=== PATIENT | female | born 1990 | race Caucasian/White ===

== ENCOUNTER 2017-11-02 04:53 | Emergency (ER) | payer OTHER, SELFPAY ==
[2017-11-02 04:56] VITALS: BP 154/99; PULSE 110; RESP 20; TEMP 36.6; O2SAT 99; BMI 33.0
--- NOTE | 2017-11-02 05:32 | ED.VISSUMM ---
- ER Visit Summary Date of Service: 11/02/17 Chief Complaint: Diarrhea for 2 days History of Present Illness: The patient is a 27 F past medical history of anxiety and hypertension. States both her and her son for diarrhea for last 2 days. She denies any fever abdominal pain. They do drink well water. She denies any nausea or vomiting is able to keep fluids down. Physical Examination: Appearing young female vital signs are stable afebrile she does not look septic toxic. She is no acute distress. Clinically at worst she is very mildly dehydrated but she does have moist wheeze membranes. Neck nontender no lymphadenopathy. Lungs clear to auscultation bilaterally. Heart regular rhythm rate about 110 no murmur. Abdomen is soft, nontender, nondistended normal bowel sounds no peritoneal signs. No localizing tenderness. No hernias or masses. No signs of obstruction. She is moving all 4 extremities are neurovascular intact. No edema. Neurologically she is awake alert with no focal motor deficits. Back exam is unremarkable and nontender. Test Results: None Emergency Department Course and Treatment: Medically and historically the patient has a viral syndrome and viral diarrhea. She is not dehydrated. She is not nauseated or vomiting. She is comfortable with orally hydrating at home. She will start Imodium for the diarrhea. And follow-up with her primary care physician Dr. Mckenna if not improving. Treatment Plan: Discharge Disposition: Discharge Impression: Acute diarrhea of uncertain etiology suspect secondary to viral syndrome Mild dehydration This note was generated with [employer] dictation software. It may contain incorrect words, spelling, and punctuation that were not noted in review of the chart prior to signing ED Disposition - Plan for ED Patient: Chief Complaint: Diarrhea Referrals: Wu Mckenna DO [Primary Care Provider] -
--- NOTE | 2017-11-02 05:34 | ED.DEP ---
ED Disposition - Plan for ED Patient: Disposition: Home or Assisted Living Chief Complaint: Diarrhea Instructions: ED Diarrhea Viral Additional Instructions: Fluids and rest. Return to ER feeling worse or unable to keep fluids down. Follow-up your primary care physician in 3-5 days if not improving. Consider having her well water checked. More than likely this is from a viral illness. Exam is unremarkable. Orally hydrate.
[2017-11-02 05:41] VITALS: BP 142/68; PULSE 98; RESP 18; O2SAT 98
== END 2017-11-02 05:42 | disposition home or self-care (01) ==
PROVIDERS: Emergency Provider Emergency Medicine; Family Provider Student in an Organized Health Care Education/Training Program; PCP Student in an Organized Health Care Education/Training Program
DX: B34.9 Viral infection, unspecified (principal); E86.0 Dehydration; I10 Essential (primary) hypertension
CPT/HCPCS: 99282

== ENCOUNTER 2018-04-22 19:55 | Observation (INO) | payer OTHER, SELFPAY ==
[2018-04-22 19:57] VITALS: BP 169/115; PULSE 128; RESP 18; TEMP 36.8; O2SAT 100; BMI 32.5
--- NOTE | 2018-04-22 20:08 | US_ITS ---
STUDY: FIRST TRIMESTER OBSTETRICAL ULTRASOUND REASON FOR EXAM: Female, 28 years old. Bleeding, abdominal pain LMP: 03/07/2018 TECHNIQUE: Transabdominal and Transvaginal TECHNICAL QUALITY: Adequate. PRIOR ULTRASOUND: None. FINDINGS: There is no demonstrated intrauterine gestational sac. There is no demonstrated yolk sac. The placenta is non-visualized. There is no demonstrated embryo ( pole). The uterus measures 9.4 x 6.2 x 4.4 cm.. There is no demonstrated uterine fibroid. The cervix is closed. The endometrium is thickened and echogenic, measuring 12 mm in thickness. The right ovary measures 3.9 x 2.9 x 2.5 cm.. There is a 1.6 x 1.5 x 0.9 cm right ovarian cyst. There is an ill-defined heterogeneous region of the right adnexa. The left ovary measures 4.9 x 2.8 x 1.7 cm.. There is no left ovarian cyst. There is no visualized left adnexal mass or complex lesion. There is a moderate amount of fluid in the anterior and posterior cul-de-sac containing debris. US/Transvaginal w/Preg US IMPRESSION: There is no evidence of intrauterine gestational sac or products of conception. The endometrium is thickened and echogenic, measuring 12 mm in thickness. There is a 1.6 x 1.5 x 0.9 cm right ovarian cyst. There is a moderate amount of fluid in the anterior and posterior cul-de-sac. Findings may represent ruptured ectopic. Electronically Signed: Erlin Giang MD at 21:47 EST , Service support ,
--- NOTE | 2018-04-22 20:17 | ED.VISSUMM ---
- ER Visit Summary Date of Service: 04/22/18 Chief Complaint: [] Pelvic cramps vaginal bleeding History of Present Illness: The patient is a 28 F [] about 5-6 weeks she has had intermittent vaginal bleeding and spotting and pelvic cramps for a few days, she was seen today by her pickling tank operator Dr. Lindsey in the office had a complete evaluation including pelvic exam pelvic ultrasound hCG quant that was 1200 all done today, she presents complaining that she still having the pelvic cramps and some scant bleeding, she denies any other history of any GI elements, her bowel and bladder habits are generally unremarkable there is been no vomiting no fever she takes her hands and draws across her lower pelvic region complaining of discomfort Physical Examination: [] 169/115, 120 General, no distress resting comfortably HEENT is generally unremarkable The neck is supple no adenopathy Cardiovascular, regular rate and rhythm Lungs, clear bilateral Abdomen, soft nontender Extremities, no clubbing cyanosis or edema Neurologic, awake alert answering questions appropriately moving all 4 extremities Exam is deferred as she just had one in the office Test Results: [] Emergency Department Course and Treatment: [] She indicates her quant was 1200 the above studies were negative we will obtain screening labs check those studies The patient's transvaginal pelvic ultrasound per radiology shows abnormality in the right adnexal region concerning for an ectopic, there is moderate amount of free pelvic fluid with debris, her vital signs are unremarkable her labs are unremarkable, spoke with Dr. Smith system sales consultant for gynecology she will be to see her shortly we have typed and screened her she has 2 IVs she is receiving fluid boluses her and remains hemodynamically stable explained all the above to the patient and her family Treatment Plan: [] Disposition: [] Pending ELASTIC ATTACHER ZIGZ[employer] evaluation Impression: [] Ectopic right, pelvic pain vaginal bleeding ELASTIC ATTACHER [employer] evaluation This note was generated with [employer] dictation software. It may contain incorrect words, spelling, and punctuation that were not noted in review of the chart prior to signing ED Disposition - Plan for ED Patient: Chief Complaint: Referrals: Wu Mckenna DO [Primary Care Provider] -
--- NOTE | 2018-04-22 20:21 | ED.DCSUM_ITS ---
- ER Visit Summary Date of Service: 04/22/18 Chief Complaint: [] Pelvic cramps vaginal bleeding History of Present Illness: The patient is a 28 F [] about 5-6 weeks she has had intermittent vaginal bleeding and spotting and pelvic cramps for a few days, she was seen today by her photo journalist Dr. Lindsey in the office had a complete evaluation including pelvic exam pelvic ultrasound hCG quant that was 1200 all done today, she presents complaining that she still having the pelvic cramps and some scant bleeding, she denies any other history of any GI elements, her bowel and bladder habits are generally unremarkable there is been no vomiting no fever she takes her hands and draws across her lower pelvic region complaining of discomfort Physical Examination: [] 169/115, 120 General, no distress resting comfortably HEENT is generally unremarkable The neck is supple no adenopathy Cardiovascular, regular rate and rhythm Lungs, clear bilateral Abdomen, soft nontender Extremities, no clubbing cyanosis or edema Neurologic, awake alert answering questions appropriately moving all 4 extremities Exam is deferred as she just had one in the office Test Results: [] Emergency Department Course and Treatment: [] She indicates her quant was 1200 the above studies were negative we will obtain screening labs check those studies The patient's transvaginal pelvic ultrasound per radiology shows abnormality in the right adnexal region concerning for an ectopic, there is moderate amount of free pelvic fluid with debris, her vital signs are unremarkable her labs are unremarkable, spoke with Dr. Smith digital content producer for gynecology she will be to see her shortly we have typed and screened her she has 2 IVs she is receiving fluid boluses her and remains hemodynamically stable explained all the above to the patient and her family Treatment Plan: [] Disposition: [] Pending SENIOR MANAGER [employer] evaluation Impression: [] Ectopic right, pelvic pain vaginal bleeding SENIOR MANAGER [employer] evaluation This note was generated with [employer] dictation software. It may contain incorrect words, spelling, and punctuation that were not noted in review of the chart prior to signing ED Disposition - Plan for ED Patient: Chief Complaint: Referrals: Wu Mckenna DO [Primary Care Provider] -
[2018-04-22] MEDS: 0.9% Normal Saline 1,000 ML 1000 ML IV (20:43)
[2018-04-22] MEDS: Labetalol 100 MG Tablet PO (20:43)
[2018-04-22 20:46] VITALS: BP 166/90; PULSE 98; O2SAT 98
[2018-04-22 20:52] LABS: Bacteria 0 SEEN /hpf (None Seen); Mucous, Urine 0 SEEN /hpf (<or=2+); White Blood Cells 0 SEEN /hpf (0-5)
[2018-04-22 20:53] LABS: Color, Urine Yellow (Yellow); Glucose, Dipstick Normal (Normal); Ketone-Dipstick 5 mg/dl (Negative); Leukocyte Esterase-Dipstick Negative /ul (Negative); Nitrite-Dipstick Negative (Negative); Occult Blood-Urine 250 /ul (Negative); Protein-Dipstick Negative (Negative); Urine Bilirubin Dipstick Negative (Negative); Urine Clarity Clear (Clear); Urine Urobilinogen Normal (Normal); Urine pH 6.5 (5.0 - 8.0)
[2018-04-22 21:00] LABS: Absolute Lymphocyte Count 2.32 X10^3/ul (0.83-4.51); Absolute Neutrophil Count 5.2 X10^3/uL (2.0-7.7); Basophil# 0.02 X10^3/uL; Basophil% 0.2 % (0-1); Eosinophil# 0.07 X10^3/uL; Eosinophils% 0.9 % (0-5); Hematocrit 41.5 % (37-47); Hemoglobin 14.2 g/dl (12.0-15.0); Lymphocyte # 2.32 X10^3/ul (4.0); Lymphocyte % 28.7 % (19-41); Mean Corp Hgb Conc 34.2 g/gl (32-36); Mean Corpuscular Hgb 30.4 pg (27.0-32.0); Mean Corpuscular Volume 88.9 fL (81-99); Mean Platelet Vol. 8.6 fl (6.2-12.0); Monocyte# 0.43 X10^3/uL; Monocyte% 5.3 % (0-10); Neutrophil # 5.22 X10^3/uL (2.7-7.7); Neutrophil % 64.8 % (47-70); POSITIVE COUNT NO; POSITIVE DIFFERENTIAL NO; POSITIVE MORPHOLOGY NO; Platelet Count 396 K/mm3 (150-450); RBC Distribution Width CV 12.1 % (11.6-14.6); RBC Distribution Width SD 38.8 fl (35.1-43.9); Red Blood Count 4.67 M/mm3 (4.2-5.4); White Blood Count 8.1 K/mm3 (4.4-11.0)
[2018-04-22 21:01] LABS: Red Blood Cells-Urine 25-50 SEEN /hpf (0-5)
[2018-04-22 21:02] LABS: Squamous Epithelial Cells - UA 0-5 SEEN /hpf (5-10)
[2018-04-22 21:34] LABS: hCG Titer Quant., Serum 866 mIU/mL (<9 non-preg)
--- NOTE | 2018-04-22 22:35 | PCM.HP.BLA ---
History and Physical Date of Admission: 04/22/18 28-year-old 2 para 1 with an last menstrual period of approximately 04/07/2018 presented to the office today complaining of a positive test with some spotting and pelvic pain. She had a quantitative hCG yesterday that was 1254 done at the [facility]. She had a small amount of free fluid in the pelvis today and a moderate amount of pelvic pain. However, her pain was being controlled with [id number] Tylenol and she was to get a repeat quantitative hCG tomorrow and she was given ectopic precautions. She states her pain got somewhat worse today. It feels a little worse in the left lower quadrant and may be in the epigastric area. It is a little bit worse when she has a gas bubble or needs to belch. It is better if she is lying still. She not taken anything for pain since Tylenol at noon today. She denies any nausea or vomiting. She has some moderate amount of bright red vaginal bleeding less than a normal menstrual period. Review of systems: General: No fevers or chills Cardiac: No chest pain or palpitation Respiratory: No shortness of breath or wheezing Endocrine: Patient's menses are somewhat irregular Heme: No history of prolonged bleeding or easy bruising GI: No diarrhea or constipation, no nausea vomiting Past obstetrical history: History of one vaginal delivery at 37 weeks and 2015. She was induced for preeclampsia with that Medications: Tylenol as needed, labetalol 100 mg p.o. twice daily, Ativan as needed for anxiety, of note she has been on Clomid to induce ovulation, and she is used Provera to induce menses Past medical history: Anxiety, infertility with irregular menses Past surgical history: [place] tooth extraction Physical exam see vitals General: Patient is awake, alert, no acute distress Neuro: Patient's cranial nerves appear symmetrical, her speech is normal, answers questions appropriately Skin: Warm dry and intact with normal turgor Abdomen: Soft, nondistended, no rebound or guarding. Moderate tenderness in the lower pelvic area and suprapubic region LIVESTOCK DEALER: Normal external genitalia, normal mons pubis, normal urethra. There is a small amount of dark red blood in the vault. There is normal vaginal rugae. Cervix appears closed and nonfriable. Uterus is small, mobile, moderate tenderness. No discrete adnexal masses Labs reviewed. Continue to be hCG has decreased significantly since yesterday. Even with internal lab discrepancies, a drop from 1254 to the 800 range is significant and consistent with a nonviable . Pelvic ultrasound results reviewed Assessment and plan: Ectopic likely of the right tube I discussed the patient risk benefits and alternatives of expectant versus surgical versus medical management methotrexate. At this point, patient is hemodynamically stable and her pain is moderate. She states if I would give her something such as Vicodin she would likely be able to sleep. Patient would like to proceed with methotrexate. I discussed with her signs and symptoms of acute rupture and when to return. We discussed the pain would likely persist or may be even slightly worsen and this is a normal progression with resolution of ectopic . However, if her pain becomes uncontrolled with the pain medications at home or she becomes lightheaded or dizzy she should return to the emergency room. We will check a CBC before discharge to ensure that is stable. If it is trending down may need to observe patient overnight versus take her to surgery for rupturing ectopic . Recommend repeat hcg in 4 and 7 days and f/u in office next week. Consultation performed at request of ED attending and case discussed face to face with him after my evaluation of patient .
[2018-04-22 22:36] LABS: AST(SGOT) 34 U/L (15-37); Alanine Aminotransfer ALT/SGPT 79 U/L (13-56); Albumin, Serum 4.2 g/dL (3.2-5.0); Alkaline Phosphatase 41 U/L (45-117); Anion Gap 8 (5-15); BUN 8 mg/dL (7-18); BUN/Creat Ratio 12.6 RATIO (10-20); Bilirubin, Direct 0.11 mg/dL (0.00-0.30); Calcium,Total 8.5 mg/dL (8.5-10.1); Chloride 108 mmol/L (98-107); Creatinine, Serum 0.63 mg/dL (0.55-1.02); EST Glomerular Filtration Rate 117 mL/min (>60); Est Glom Filt Rate - Afr Amer 142 mL/min (>60); Estimated Creatinine Clearance 112.75 ml/min; Globulin 3.3 g/dL (2.2-4.2); Glucose 98 mg/dL (74-106); Potassium 3.6 mmol/L (3.5-5.1); Protein, Total 7.5 g/dL (6.4-8.2); Sodium Level 140 mmol/L (136-145)
--- NOTE | 2018-04-22 22:41 | HP.PCM_ITS ---
History and Physical Date of Admission: 04/22/18 28-year-old 2 para 1 with an last menstrual period of approximately 04/07/2018 presented to the office today complaining of a positive test with some spotting and pelvic pain. She had a quantitative hCG yesterday that was 1254 done at the [facility]. She had a small amount of free fluid in the pelvis today and a moderate amount of pelvic pain. However, her pain was being controlled with [id number] Tylenol and she was to get a repeat quantitative hCG tomorrow and she was given ectopic precautions. She states her pain got somewhat worse today. It feels a little worse in the left lower quadrant and may be in the epigastric area. It is a little bit worse when she has a gas bubble or needs to belch. It is better if she is lying still. She not taken anything for pain since Tylenol at noon today. She denies any nausea or vomiting. She has some moderate amount of bright red vaginal bleeding less than a normal menstrual period. Review of systems: General: No fevers or chills Cardiac: No chest pain or palpitation Respiratory: No shortness of breath or wheezing Endocrine: Patient's menses are somewhat irregular Heme: No history of prolonged bleeding or easy bruising GI: No diarrhea or constipation, no nausea vomiting Past obstetrical history: History of one vaginal delivery at 37 weeks and 2015. She was induced for preeclampsia with that Medications: Tylenol as needed, labetalol 100 mg p.o. twice daily, Ativan as nee ded for anxiety, of note she has been on Clomid to induce ovulation, and she is used Provera to induce menses Past medical history: Anxiety, infertility with irregular menses Past surgical history: [place] tooth extraction Physical exam see vitals General: Patient is awake, alert, no acute distress Neuro: Patient's cranial nerves appear symmetrical, her speech is normal, answers questions appropriately Skin: Warm dry and intact with normal turgor Abdomen: Soft, nondistended, no rebound or guarding. Moderate tenderness in the lower pelvic area and suprapubic region TELEVISION TUBE INSPECTOR: Normal external genitalia, normal mons pubis, normal urethra. There is a small amount of dark red blood in the vault. There is normal vaginal rugae. Cervix appears closed and nonfriable. Uterus is small, mobile, moderate tenderness. No discrete adnexal masses Labs reviewed. Continue to be hCG has decreased significantly since yesterday. Even with internal lab discrepancies, a drop from 1254 to the 800 range is significant and consistent with a nonviable . Pelvic ultrasound results reviewed Assessment and plan: Ectopic likely of the right tube I discussed the patient risk benefits and alternatives of expectant versus surgical versus medical management methotrexate. At this point, patient is hemodynamically stable and her pain is moderate. She states if I would give her something such as Vicodin she would likely be able to sleep. Patient would like to proceed with methotrexate. I discussed with her signs and symptoms of acute rupture and when to return. We discussed the pain would likely persist or may be even slightly worsen and this is a normal progression with resolution of ectopic . However, if her pain becomes uncontrolled with the pain medications at home or she becomes lightheaded or dizzy she should return to the emergency room. We will check a CBC before discharge to ensure that is stable. If it is trending down may need to observe patient overnight versus take her to surgery for rupturing ectopic . Recommend repeat hcg in 4 and 7 days and f/u in office next week. Consultation performed at request of ED attending and case discussed face to face with him after my evaluation of patient .
[2018-04-22] MEDS: HYDROcodone Bitartrate/Apap 5/325 Tablet PO (23:26)
[2018-04-22] MEDS: Ketorolac 30 MG/ML Syringe IV (23:26)
[2018-04-22] MEDS: 0.9% Normal Saline 1,000 ML 999 ML IV (23:26)
[2018-04-22 23:28] VITALS: BP 156/95; PULSE 96; RESP 15; O2SAT 98
[2018-04-23] VITALS (10 sets, daily range): BP systolic 133–163; BP diastolic 63–99; PULSE 82–113; RESP 14–18; TEMP 36.6–37.2; O2SAT 92–99; BMI 33.1
--- NOTE | 2018-04-23 | FALS_PTH ---
PATIENT: LEANA JANES LOC: MS3 U#:[id number] AGE/SX: 28/F ROOM: MS306 RE04/23/[address]: Dr. Latosha Smith MD : [id number] BED: 1 DIS: 04/23/2018 SPEC #: [id number] RECD: 04/23/18 14:30 STATUS: CHUCKY REDomenic #: [id number] KRAINA: 04/23/18 00:[address]: Latosha Smith DEPT: SURGICAL PATHOLOGY RECD BY: Kaden Carroll ENTERED: 04/23/18 14:30 SP TYPE: FALL TUBES OTHR DR: Dr. Wu Mckenna, DO Tissues: Fallopian tube Procedures: Surgery Specimen Level IV HEADER OPERATION: Diagnostic laparoscopy, left salpingectomy PRE-OP DIAGNOSIS: Possible ectopic TISSUE SUBMITTED: Left fallopian tube and contents MICROSCOPIC DIAGNOSIS Left fallopian tube and contents: Fallopian tube including fimbrial end with focal area of rupture. Detached fragments of blood clots with decidua and trophoblasts, suggestive of products of conception (ectopic ). CHRISTIANO:marissa 04/24/18 COMMENT Chorionic villi are not identified. Clinical correlation and appropriate follow up are necessary. Case has been reviewed in consultation with Dr. Mckeon who concurs with the above diagnosis. IDC:AM MICROSCOPIC DESCRIPTION Slides are reviewed. GROSS DESCRIPTION Received in fixative is one container labeled with the patient's name and designated left fallopian tube and contents. The specimen consists of a fallopian tube measuring 8.5 cm in length and up to 0.5 to 1 cm in diameter. In the middle portion, 4 cm away from the proximal end, there is a focal area of congestion, hemorrhage and rupture is noted. The fimbrial end is identified. Also present in the container is a detached piece of kumar-pink soft tissue and blood clot measuring in aggregate 2 x 1.5 x 0.3 cm. No obvious tissue is identified. The entire specimen is submitted in four cassettes. Cassette 1 contains the fimbrial end and detached pieces of tissue and blood clot. / CHRISTIANO:marissa 04/23/18 TC:5 CPT: 25445
[2018-04-23 00:11] LABS: Hemoglobin 9.9 g/dl (12.0-15.0); Mean Corp Hgb Conc 34.1 g/gl (32-36); Mean Corpuscular Hgb 30.8 pg (27.0-32.0); Mean Corpuscular Volume 90.3 fL (81-99); Mean Platelet Vol. 8.9 fl (6.2-12.0); Platelet Count 288 K/mm3 (150-450); RBC Distribution Width CV 11.9 % (11.6-14.6); RBC Distribution Width SD 37.7 fl (35.1-43.9); Red Blood Count 3.21 M/mm3 (4.2-5.4); White Blood Count 6.1 K/mm3 (4.4-11.0)
--- NOTE | 2018-04-23 00:11 | NURSING ---
NO REACTION NOTED AFTER BILATERAL IM INJECTIONS OF METHOTREXATE IN HER THIGHS.
[2018-04-23 00:13] LABS: Scan Indicated on CBC? Y/N NO
[2018-04-23] MEDS: Lactated Ringers 1,000 ML 100 ML IV (03:28)
[2018-04-23] MEDS: HYDROmorphone 1 MG/ML Syringe IV ×3 (03:28→11:59)
[2018-04-23 06:11] LABS: Hematocrit 34.2 % (37-47); Hemoglobin 11.7 g/dl (12.0-15.0); Mean Corp Hgb Conc 34.2 g/gl (32-36); Mean Corpuscular Hgb 30.6 pg (27.0-32.0); Mean Corpuscular Volume 89.5 fL (81-99); Mean Platelet Vol. 8.4 fl (6.2-12.0); Platelet Count 345 K/mm3 (150-450); RBC Distribution Width CV 11.9 % (11.6-14.6); Red Blood Count 3.82 M/mm3 (4.2-5.4); White Blood Count 7.6 K/mm3 (4.4-11.0)
[2018-04-23 06:15] LABS: Scan Indicated on CBC? Y/N NO
--- NOTE | 2018-04-23 08:36 | EKG12_ITS ---
Test Reason : PREOP Blood Pressure : / mmHG Vent. Rate : 094 BPM Atrial Rate : 094 BPM P-R Int : 116 ms QRS Dur : 080 ms QT Int : 350 ms P-R-T Axes : 028 018 041 degrees QTc Int : 437 ms Normal sinus rhythm with sinus arrhythmia Septal infarct , age undetermined Abnormal ECG No previous ECGs available Confirmed by LBAKE NEGRO, SIDNEY ([id number]), assignment editor AMADA STRONG ([id number]) on 04/27/2018 2:55:26 PM Referred By: HERB Confirmed By:SIDNEY LOZANO MD
--- NOTE | 2018-04-23 09:02 | NURSING ---
report called to Angela in AC. pt transported down by Imelda with student nurse Bel with her. ACCOUNTS RECEIVABLE ACCOUNTANT checking to be sure that student nurse is able to observe surgery
--- NOTE | 2018-04-23 09:28 | PN.OBGYN_ITS ---
Subjective: Patient complain of more pain this morning. She was able to sleep after the Dilaudid in the middle the night. However now, it pain is significantly worse when she is up and moving to the bathroom. Is also having some pain radiating up in her shoulder now. Pain, shortness of breath or palpitation - Physical Exam General: Alert, Cooperative, No apparent distress Abdomen: Soft, Non-Distended, Tender - Moderately with some guarding, no rebound Extremities: No edema Vital Signs Temp Pulse Resp BP Pulse Ox 98.2 F 100 14 163/87 H 99 04/23/18 07:31 04/23/18 07:31 04/23/18 07:31 04/23/18 07:31 04/23/18 07:31 Oxygen Delivery Method Room Air Weight: 87.543 kg Body Mass Index (BMI) 33.1 Intake and Output for Last 24 Hours 04/21/18 04/22/18 04/23/18 23:59 23:59 23:59 Intake Total 338 / 338 Balance 338 / 338 Laboratory Tests Past 24 Hrs 04/22/18 04/22/18 04/22/18 20:36 20:36 20:36 WBC 8.1 RBC 4.67 Hgb 14.2 Hct 41.5 MCV 88.9 MCH 30.4 MCHC 34.2 RDW 12.1 RDW Differential 38.8 Plt Count 396 MPV 8.6 Immature Gran % (Auto) 0.100 Neut % (Auto) 64.8 Lymph % (Auto) 28.7 [place] % (Auto) 5.3 Eos % (Auto) 0.9 Baso % (Auto) 0.2 Absolute Neuts (auto) 5.2 Absolute Lymphs (auto) 2.32 Total Counted Not Reportable Sodium Potassium Chloride Carbon Dioxide Anion Gap BUN Creatinine Estim Creat Clear Calc Est GFR (MDRD) Af Amer Est GFR (MDRD) Non-Af BUN/Creatinine Ratio Glucose Calcium Total Bilirubin Direct Bilirubin AST ALT Alkaline Phosphatase Total Protein Albumin Globulin HCG, Quant 866 H Urine Color Urine Clarity Urine pH Ur Specific [place] Urine Protein Urine Glucose (UA) Urine Ketones Urine Occult Blood Urine Nitrite Urine Bilirubin Urine Urobilinogen Ur Leukocyte Esterase Urine RBC Urine WBC Ur Squamous Epith Cells Urine Bacteria Urine Mucus Blood Type A POSITIVE Antibody Screen 04/22/18 04/22/18 04/22/18 20:36 20:45 22:10 WBC RBC Hgb Hct MCV MCH MCHC RDW RDW Differential Plt Count MPV Immature Gran % (Auto) Neut % (Auto) Lymph % (Auto) [place] % (Auto) Eos % (Auto) Baso % (Auto) Absolute Neuts (auto) Absolute Lymphs (auto) Total Counted Sodium 140 Potassium 3.6 Chloride 108 H Carbon Dioxide 24.0 Anion Gap 8 BUN 8 Creatinine 0.63 Estim Creat Clear Calc 112.75 Est GFR (MDRD) Af Amer 142 Est GFR (MDRD) Non-Af 117 BUN/Creatinine Ratio 12.6 Glucose 98 Calcium 8.5 Total Bilirubin 0.40 Direct Bilirubin 0.11 AST 34 ALT 79 H Alkaline Phosphatase 41 L Total Protein 7.5 Albumin 4.2 Globulin 3.3 HCG, Quant Urine Color Yellow Urine Clarity Clear Urine pH 6.5 Ur Specific [place] 1.010 Urine Protein Negative Urine Glucose (UA) Normal Urine Ketones 5 H Urine Occult Blood 250 H Urine Nitrite Negative Urine Bilirubin Negative Urine Urobilinogen Normal Ur Leukocyte Esterase Negative Urine RBC 25-50 SEEN Urine WBC 0 SEEN Ur Squamous Epith Cells 0-5 SEEN Urine Bacteria 0 SEEN Urine Mucus 0 SEEN Blood Type A POSITIVE Antibody Screen NEGATIVE 04/23/18 04/23/18 00:08 05:58 WBC 6.1 7.6 RBC 3.21 L 3.82 L Hgb 9.9 L 11.7 L Hct 29.0 L 34.2 L MCV 90.3 89.5 MCH 30.8 30.6 MCHC 34.1 34.2 RDW 11.9 11.9 RDW Differential 37.7 38.0 Plt Count 288 345 MPV 8.9 8.4 Immature Gran % (Auto) Neut % (Auto) Lymph % (Auto) [place] % (Auto) Eos % (Auto) Baso % (Auto) Absolute Neuts (auto) Absolute Lymphs (auto) Total Counted Sodium Potassium Chloride Carbon Dioxide Anion Gap BUN Creatinine Estim Creat Clear Calc Est GFR (MDRD) Af Amer Est GFR (MDRD) Non-Af BUN/Creatinine Ratio Glucose Calcium Total Bilirubin Direct Bilirubin AST ALT Alkaline Phosphatase Total Protein Albumin Globulin HCG, Quant Urine Color Urine Clarity Urine pH Ur Specific [place] Urine Protein Urine Glucose (UA) Urine Ketones Urine Occult Blood Urine Nitrite Urine Bilirubin Urine Urobilinogen Ur Leukocyte Esterase Urine RBC Urine WBC Ur Squamous Epith Cells Urine Bacteria Urine Mucus Blood Type Antibody Screen Medical Necessity - Tobacco Use Smoking Status: Never smoker Assessment/Plan Hospital day #2 status post methotrexate for ectopic . Hemoglobin initially dropped last night but now is increased somewhat this morning. 11.2 seems appropriate for IV hydration. However, patient's pain is worsening. Symptoms are consistent with hemoperitoneum. Discussion with the patient had by myself and Dr. Lindsey. This benefits and alternatives to laparoscopic evacuation of hemoperitoneum with possible salpingo-ostomy R salpingectomy and possible oophorectomy and removal of any other necessary tissue were discussed with the patient, her questions were answered to her satisfaction she desires to proceed. Consent was signed.
--- NOTE | 2018-04-23 10:49 | PCM.OPRPT ---
Report of Operation Date of Procedure: 04/23/18 Pre-Operative Diagnosis: ruptured ectopic Post-Operative Diagnosis: same, hemoperitoneum Surgery/Procedure Performed:: diagnostic laparoscopy, Left salpingectomy, removal hemoperitoneum Description of Surgical Findings:: active bleeding from left fallopian tube ectopic . approximately 400cc hemoperitoneum identified and suctioned. attempted to performed salpingostomy but persistent bleeding despite placement of fibrillar and ezio- decision made to remove fallopian tube. research test engine evaluator: Latosha Smith Type of Anesthesia:: General Specimen's removed: left fallopian tube and contents (ectopic ) Drains: none Estimated Blood Loss (mL): 400 Fluids Replaced: 1600 Description of Procedure: After informed consent was obtained patient was taken to the operating room she was placed in supine position she was given anesthesia. She was then placed in the [facility] stirrups and she was prepped and draped in normal sterile fashion. Bladder was drained prior to the start of procedure approximately 150 cc of clear yellow urine was expelled. At this time attention was turned to the vaginal portion where weighted speculum placed at posterior fornix vagina single-tooth tenaculum was used to gently grasp the internal the cervix. uterus was gently sounded to approximately 8cm. Uterine manipulator was placed without difficulty. Legs then placed in parallel with the abdomen the tenaculum and the weighted speculum were removed. 2 towel clamps were placed superior to umbilicus. After lidocaine was injected in umbilicus a small incision was made and a 5 mm trocar was placed under direct visualization. CO2 gas was used to insufflate the intra-abdominal cavity. Upon inspection hemoperitoneum and active bleeding from left fallopian tube with presumed ruptured ectopic . At this time then the RLQ and LLQ ports were placed again lidocaine was injected small incision was made a knife and the 5 mm trocars were placed. Monopolar scissor used to incise tube and remove ectopic- fibrillar and ezio placed but active bleeding still appreciated. decision made to perform salpingectomy at this time. THE RIGHT TUBE AND OVARY appeared normal. Ligasure was used to coagulate and ligate along mesosalpynx on left until tube removed completely. suction performed to remove remaining hemoperitoneum. Good hemostasis was appreciated. At this time procedure was deemed complete successful. The gas was desufflated on from the intra-abdominal cavity. The trochars were removed. Skin was closed using 4-0 Monocryl in a subcutaneous fashion. Dermabond glue was placed. Instrument lap and needle counts were correct ?2. The uterine manipulator was removed. Vaginal sweep was performed it was negative. There were no complications anticipated normal postoperative course for this patient. repeat cbc in 2 hours and if stable dc home. Grafts/Implants Used: none - Complications none - Admit VTE Documentation VTE Present on Admission: Yes VTE Mechan Device Prophylaxis: SCD's VTE Pharm Prophylaxis ordered?: No
--- NOTE | 2018-04-23 10:55 | OP.PCM_ITS ---
Report of Operation Date of Procedure: 04/23/18 Pre-Operative Diagnosis: ruptured ectopic Post-Operative Diagnosis: same, hemoperitoneum Surgery/Procedure Performed:: diagnostic laparoscopy, Left salpingectomy, removal hemoperitoneum Description of Surgical Findings:: active bleeding from left fallopian tube ectopic . approximately 400cc hemoperitoneum identified and suctioned. attempted to performed salpingostomy but persistent bleeding despite placement of fibrillar and ezio- decision made to remove fallopian tube. welt slasher: Latosha Smith Type of Anesthesia:: General Specimen's removed: left fallopian tube and contents (ectopic ) Drains: none Estimated Blood Loss (mL): 400 Fluids Replaced: 1600 Description of Procedure: After informed consent was obtained patient was taken to the operating room she was placed in supine position she was given anesthesia. She was then placed in the [facility] stirrups and she was prepped and draped in normal sterile fashion. Bladder was drained prior to the start of procedure approximately 150 cc of clear yellow urine was expelled. At this time attention was turned to the vaginal portion where weighted speculum placed at posterior fornix vagina single-tooth tenaculum was used to gently grasp the internal the cervix. uterus was gently sounded to approximately 8cm. Uterine manipulator was placed without difficulty. Legs then placed in parallel with the abdomen the tenaculum and the weighted speculum were removed. 2 towel clamps were placed superior to umbilicus. After lidocaine was injected in umbilicus a small incision was made and a 5 mm trocar was placed under direct visualization. CO2 gas was used to insufflate the intra-abdominal cavity. Upon inspection hemoperitoneum and active bleeding from left fallopian tube with presumed ruptured ectopic . At this time then the RLQ and LLQ ports were placed again lidocaine was injected small incision was made a knife and the 5 mm trocars were placed. Monopolar scissor used to incise tube and remove ectopic- fibrillar and ezio placed but active bleeding still appreciated. decision made to perform salpingectomy at this time. THE RIGHT TUBE AND OVARY appeared normal. Ligasure was used to coagulate and ligate along mesosalpynx on left until tube removed completely. suction performed to remove remaining hemoperitoneum. Good hemostasis was appreciated. At this time procedure was deemed complete successful. The gas was desufflated on from the intra-abdominal cavity. The trochars were removed. Skin was closed using 4-0 Monocryl in a subcutaneous fashion. Dermabond glue was placed. Instrument lap and needle counts were correct ?2. The uterine manipulator was removed. Vaginal sweep was performed it was negative. There were no complications anticipated normal postoperative course for this patient. repeat cbc in 2 hours and if stable dc home. Grafts/Implants Used: none - Complications none - Admit VTE Documentation VTE Present on Admission: Yes VTE Mechan Device Prophylaxis: SCD's VTE Pharm Prophylaxis ordered?: No
--- NOTE | 2018-04-23 10:58 | DCINST_ITS ---
Discharge Diet: No Restrictions, - - Increase fluid intake for 48 hours. Discharge Activity: Return to Normal Activity, May Drive - when you are no longer taking narcotic pain medications., May Shower, May Take a Tub Bath - in 7 days., - - Ambulate often the next week after surgery. May shower in (days): 1 May resume sexual activity in: 2 weeks Lifting Restrictions: 20 Additional Activity Instructions:: Nothing in the vagina for the next 5 days. Call your doctor if your incision/area has: Continuous Slow Oozing, Sudden Increased Bleeding, Increased Pain/ Swelling, Increased Redness, Foul Smelling Discharge, Swelling at the incision site Call your doctor if you observe: Fever of 101 or Higher, Using more than one pad per hour Cleanse incision/area with: Soap & Water, - - you have skin glue over incisions- do not pick off. ok to let soap and water run over incision sites and dab dry. Allergies/Adverse Reactions: Allergies No Known Allergies Allergy (Verified 04/22/18 19:57) Medications to take at Discharge Labetalol [Trandate (Beta Alin)] 100 mg PO BID #60 tablet 02/03/15 Lorazepam [Ativan] 1 tab PO QHS PRN PRN 11/02/17 Hydrocodone/Acetaminophen [[place] 5-325 Tablet] 1 - 2 each PO Q6H PRN PRN 5 Days #14 tablet 04/22/18 Ibuprofen [Motrin] 800 mg PO TID PRN PRN #60 tablet 04/22/18 The following prescriptions were given: Hydrocodone/Acetaminophen [[place] 5-325 Tablet] 1 - 2 each PO Q6H PRN PRN 5 Days #14 tablet PRN Reason: Severe Pain (6-02/25) Ibuprofen [Motrin] 800 mg PO TID PRN PRN #60 tablet PRN Reason: Pain Primary Care Physician: Wu Mckenna DO [Primary Care Provider] - Test Results: Test results from this visit will be discussed in further detail at your follow- up appointment, if applicable. Please Follow Up With: Anne-Marie Gomes MD When: 2 weeks post op
[2018-04-23] MEDS: Lactated Ringers 1,000 ML 75 ML IV (12:04)
[2018-04-23 12:47] LABS: Hematocrit 36.7 % (37-47); Hemoglobin 12.4 g/dl (12.0-15.0); Mean Corp Hgb Conc 33.8 g/gl (32-36); Mean Corpuscular Volume 88.9 fL (81-99); Mean Platelet Vol. 8.3 fl (6.2-12.0); Platelet Count 323 K/mm3 (150-450); RBC Distribution Width CV 12.2 % (11.6-14.6); RBC Distribution Width SD 39.1 fl (35.1-43.9); Red Blood Count 4.13 M/mm3 (4.2-5.4); White Blood Count 14.1 K/mm3 (4.4-11.0)
[2018-04-23 12:51] LABS: Scan Indicated on CBC? Y/N NO
[2018-04-23] MEDS: HYDROcodone Bitartrate/Apap 5/325 Tablet PO (14:14)
== END 2018-04-23 14:49 | disposition home or self-care (01) ==
LOC: ED 20:26 → MS3 04-23 01:59
PROVIDERS: Obstetrics & Gynecology; Admitting Provider Obstetrics & Gynecology; Emergency Provider Emergency Medicine; Family Provider Student in an Organized Health Care Education/Training Program; PCP Student in an Organized Health Care Education/Training Program; Visit Provider Obstetrics & Gynecology
PROC: (CPT 49320; principal; 2018-04-23 09:45)
DX: O20.9 Hemorrhage in early pregnancy, unspecified (principal); O00.102 Left tubal pregnancy without intrauterine pregnancy; F41.9 Anxiety disorder, unspecified; Z79.899 Other long term (current) drug therapy; I10 Essential (primary) hypertension; N97.9 Female infertility, unspecified
CPT/HCPCS: 00840; 59151; 36415; 76817; 80048; 80076; 81001; 84702; 85025; 85027; 86850; 86900; 88302; 88305; 93005; 96361; 96372; 96374; 96375; 96376; 99218; 99282; J7030; J7120; A4216; G0378; J2405; J9250

== ENCOUNTER 2019-06-14 06:50 | Inpatient (IN) | payer OTHER, SELFPAY ==
[2018-04-23 08:30] VITALS: BMI 33.1
[2019-06-14] VITALS (7 sets, daily range): BP systolic 160–182; BP diastolic 85–115; PULSE 85–99; BMI 35.4
[2019-06-14] MEDS: Lactated Ringers 1,000 ML 50 ML IV (07:50)
[2019-06-14 08:05] LABS: Absolute Lymphocyte Count 1.28 X10^3/uL (0.83-4.51); Absolute Neutrophil Count 5.1 X10^3/uL (2.0-7.7); Basophil# 0.04 X10^3/uL; Basophil% 0.6 % (0-1); Eosinophil# 0.06 X10^3/uL; Eosinophils% 0.9 % (0-5); Hematocrit 40.8 % (37-47); Hemoglobin 13.8 g/dL (12.0-15.0); Lymphocyte # 1.28 X10^3/ul (4.0); Lymphocyte % 18.7 % (19-41); Mean Corp Hgb Conc 33.8 g/dL (32-36); Mean Corpuscular Hgb 30.6 pg (27.0-32.0); Mean Corpuscular Volume 90.5 fL (81-99); Mean Platelet Vol. 9.8 fl (6.2-12.0); Monocyte# 0.38 X10^3/uL; Monocyte% 5.5 % (0-10); NRBC Flagged by Analyzer 0 % (0-5); Neutrophil # 5.05 X10^3/uL (2.7-7.7); Neutrophil % 73.6 % (47-70); Platelet Count 284 K/mm3 (150-450); RBC Distribution Width CV 12.3 % (11.6-14.6); RBC Distribution Width SD 40.2 fl (35.1-43.9); Red Blood Count 4.51 M/mm3 (4.2-5.4); White Blood Count 6.9 K/mm3 (4.4-11.0)
[2019-06-14] MEDS: 0.9% Normal Saline Single 100 ML IV.SOLN. IY (08:52)
[2019-06-14] MEDS: Oxytocin 30 units/NS 500 ml 30 UNITS/500 ML IV.SOLN IV (09:00)
--- NOTE | 2019-06-14 09:18 | HP.PCM_ITS ---
- Problem List (1) Chronic hypertension affecting Status: Chronic (2) Pre-eclampsia superimposed on chronic hypertension, antepartum Status: Acute (3) Obesity affecting Status: Acute (4) Anxiety Status: Acute History Date of Admission: 04/22/18 Final KAREN: 07/05/19 Gestational age: 37 Weeks and 0 Days History of this : This is a 29 year-old, G [3], P [1011], at 37 weeks gestational age. Presents for induction of labor due to chronic hypertension with superimposed preeclampsia. Asymptomatic. Allergies No Known Allergies Allergy (Verified 06/14/19 07:33) Home Medications: Home Medications Aspirin [Aspir 81] 81 mg PO DAILY 06/14/19 Labetalol [Trandate (Beta Alin)] 300 mg PO TID 06/14/19 Vit No.130/Iron/Folic [ Tablet] 1 ea PO DAILY 06/14/19 Smoking Status: Never smoker Alcohol: None Number of Fetus(es): 1 NST - FHR Rate Baby A Baseline: 140 Variability:: Moderate Accelerations:: 15 x 15 Decelerations:: None FHR Category:: Category I Uterine Activity:: None History Past Pregnancies: Past Pregnancies Delivery Date Name GA/ Weeks Outcome Route Wt Infant Sex Labor Length Anesthesia Delivery Location Provider FOB Labs: Mom's Labs & Results 06/14/19 06/14/19 07:50 07:50 WBC 6.9 RBC 4.51 Hgb 13.8 Hct 40.8 MCV 90.5 MCH 30.6 MCHC 33.8 RDW Std Deviation 40.2 RDW Coeff of Leeanne 12.3 Plt Count 284 MPV 9.8 Immature Gran % (Auto) 0.700 Neut % (Auto) 73.6 H Lymph % (Auto) 18.7 L [place] % (Auto) 5.5 Eos % (Auto) 0.9 Baso % (Auto) 0.6 Absolute Neuts (auto) 5.1 Absolute Lymphs (auto) 1.28 Nucleated RBC % 0 Blood Type Pending Antibody Screen Pending Course Did the patient receive Yes care? Labs Blood Type: A RH: POSITIVE RPR/VDRL/Syphilis Nonreactive Rubella status Immune HbSAg Negative Date Done: 11/23/18 Chlamydia Negative Gonorrhea Negative HIV/AIDS Non-Reactive Group B Strep: Negative Current Obstetrical History Gestational Diabetes No Incompetent Cervix No Infertility Yes: CLOMID IUGR No Macrosomia No Hypertension/Pre-eclampsia Yes Placenta Previa/Abruption No PTL/PROM No Uterine anomaly No Oligohydramnios No Polyhydramnios No Multiple gestation No Past Medical History Asthma No Diabetes No Hypertension Yes Heart disease No Mitral valve prolapse No Neurologic/Seizure disorder/ No Migraines Kidney disease No Liver disease No Varicosities No Clotting disorders/Hx of DVT No Thyroid Dysfunction Yes: 1MM NODULE Other medical diseases No Psychiatric disorders No Major trauma No Abnormal PAP smear No Sleep apnea No Mammogram in the last 2 years No Social History Marital Status: Alleged father JANNETTE Hx Smoking No Smoking Status Never smoker How long have you used NA substances (years)? Expected Infant Delivery Method: Spontaneous Vaginal Review of Systems Constitutional: Denies: Chills, Fever, Weight Change Eyes: Denies: Blurred vision HEENT: Denies: Head Aches, Sinus Congestion, Sinus Drainage Cardiovascular: Denies: Chest Pain, Palpitations Respiratory: Denies: Cough, Shortness of breath at rest, Sputum production Gastrointestinal: Denies: Abdominal Pain, Nausea, Vomiting Genitourinary: Denies: Dysuria Neurological: Denies: Numbness, Tingling, Focal weakness Psychiatric: Denies: Anxiety, Depression, Homicidal Ideations, Suicidal Ideations Physical Exam General: Alert, Oriented x3, Cooperative, No apparent distress HEENT: Atraumatic, Normocephalic Cardiovascular: Regular rate, Regular Rhythm, No murmurs Lungs: Clear to auscultation, Normal air movement, No rhonchi, No wheeze Abdomen: Bowel Sounds Present, Non Tender, Gravid Extremities:: No edema Neurological: Deep Tendon Reflexes 2+/4 and Symmetrical. 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 Station: -3 Effacement (%): 50 Assessment/Plan All Active Problems Pre-eclampsia superimposed on chronic hypertension, antepartum (Acute) Obesity affecting (Acute) Anxiety (Acute) This is a 29 year-old, G [3], P [1011], at 37 weeks gestational age Chronic HTN with superimposed preeclampsia with severe features P: 1) Admit to L&D 2) Normal labs and preeclampsia labs 3) HTN protocol initiated with Labetalol. Magnesium to be initiated due to severe range BP. 4) Eldridge with pitocin for induction of labor 5) Epidural for pain management 6) notified of patient status and referral of management due to preeclampsia with severe features.
[2019-06-14] MEDS: Magnesium Sulfate 4gm/100mL 4 GM/100 ML IV.SOLN. IV (09:28)
[2019-06-14 09:39] LABS: Hematocrit 41.6 % (37-47); Hemoglobin 14.1 g/dL (12.0-15.0); Mean Corp Hgb Conc 33.9 g/dL (32-36); Mean Corpuscular Hgb 30.9 pg (27.0-32.0); Mean Corpuscular Volume 91.2 fL (81-99); Mean Platelet Vol. 9.6 fl (6.2-12.0); Platelet Count 302 K/mm3 (150-450); RBC Distribution Width CV 12.2 % (11.6-14.6); RBC Distribution Width SD 40.4 fl (35.1-43.9); Red Blood Count 4.56 M/mm3 (4.2-5.4); White Blood Count 7.3 K/mm3 (4.4-11.0)
[2019-06-14] MEDS: Magnesium Sulfate 4gm/100mL 2 GM/50 ML IV.SOLN. IV (09:45)
[2019-06-14 09:48] LABS: International Normalized Ratio 0.9; Partial Thromboplast Time 25.5 Seconds (24.1-36.2); Prothrombin Time (Protime)PT. 12.3 SECONDS (11.7-14.9)
[2019-06-14 09:50] LABS: Protein:Creat Ratio 625 mg/g CRE (0-200)
[2019-06-14 09:53] LABS: AST(SGOT) 29 U/L (15-37); Alanine Aminotransfer ALT/SGPT 37 U/L (13-56); Creatinine, Serum 0.54 mg/dL (0.55-1.02); EST Glomerular Filtration Rate 141 mL/min (>60); Est Glom Filt Rate - Afr Amer 171 mL/min (>60); Estimated Creatinine Clearance 130.35 ml/min; Uric Acid 4.7 mg/dL (2.6-6.0)
--- NOTE | 2019-06-14 12:21 | PCM.PN.BLA ---
Progress Note Seen at bedside, resting comfortably. Starting to feel some mild contractions. Patient denies any headaches or visual changes. Vaginal exam performed 2 cm [place] bulb still in place. Continue magnesium sulfate 2 g/h maintenance for chronic hypertension with superimposed preeclampsia-severe range pressures. Discussed epidural for pain management. Continue Pitocin for labor induction. heart tracing category 1. STROKE Vital Signs/Narrative: Vital Signs Pulse BP 06/14/19 09:41 91 179/115 H 06/14/19 09:23 89 173/110 H
[2019-06-14] MEDS: Lactated Ringers 500 ML 999 ML IV ×2 (13:10→20:33)
[2019-06-14] MEDS: Sodium Chloride 0.65% 1 SPRAY SPRAY.BTL NASAL ×2 (13:29→17:39)
[2019-06-14] MEDS: Labetalol 200 MG Tablet 300 MG PO ×2 (14:00→22:14)
[2019-06-14] MEDS: fentaNYL-bupivacaine (epidural) 100 ML BAG EPIDURAL ×2 (14:12→18:47)
[2019-06-14] MEDS: Acetaminophen 325 MG Tablet PO ×2 (15:55→20:31)
--- NOTE | 2019-06-14 16:28 | NURSING ---
Per Dr Lindsey LR decrease to 150cc/hr due to pt on magnesium.
--- NOTE | 2019-06-14 16:40 | PCM.PN.BLA ---
Progress Note Seen at bedside, doing well. Resting comfortably with epidural in place. Vaginal exam performed 5 cm / 60 to 70%/-2. AROM performed large amount of clear fluid. IFM placed. Continue Pitocin and allow labor. Anticipated normal spontaneous vaginal delivery. Monitor blood pressures and continue with hypertensive protocol as needed. FHR category 1 STROKE Vital Signs/Narrative: Vital Signs Pulse BP 06/14/19 14:36 97 182/104 H
[2019-06-14] MEDS: Lactated Ringers 1,000 ML 150 ML IV (16:43)
--- NOTE | 2019-06-14 21:58 | PCM.PN.BLA ---
Progress Note pt seen at bedside, epidural in place- having lower pelvic pain with contractions and pressure. pt reports headache since Magnesium/Epidural today. Pt denies visual changes. BP still severe range despite Hydralazine IV and PO labetalol 300mg TID. Continue Magnesium and HTN protocol. Continue Fluid restrictions. VE performed , Caput noted- OP position, attempt at rotation. will start Amnioinfusion. continue Pitocin. FHR tracing Category 2. Blood Tinged urine in eldridge catheter noted. STROKE Vital Signs/Narrative: Vital Signs Pulse BP 06/14/19 21:24 99 182/91 H 06/14/19 20:57 89 174/100 H
[2019-06-14] MEDS: Amnioinfusion- 0.9% NS 1,000 ML IV.SOLN. 300 ML INTRA-UTER (22:05)
[2019-06-14] MEDS: DiphenhydrAMINE 50 MG/ML Syringe IV (22:50)
--- NOTE | 2019-06-14 22:57 | PCM.PN.BLA ---
Progress Note Evaluated at bedside. heart tracing category 2 recurrent variable decelerations down to 40 to 60 bpm good return to baseline. Amnioinfusion running. Pitocin is off. Discussion at this time for primary section. Patient Still Approximately 7-8 Cm / 80% Effaced/-1 Station. caput Appreciated. OR staff notified. Preoperative antibiotics ordered. Patient was counseled on primary section including risk for infection, bleeding. Patient is requesting a tubal ligation at this time. Verbal consent was obtained. STROKE Vital Signs/Narrative: Vital Signs Pulse BP 06/14/19 22:01 97 177/85 H 06/14/19 21:24 99 182/91 H 06/14/19 20:57 89 174/100 H
[2019-06-14] MEDS: Sodium Citrate/Citric Acid 30 ML UDC PO (23:00)
[2019-06-14] MEDS: Cefazolin 2 GM in 0.9% Normal Saline 100 ML IV (23:10)
--- NOTE | 2019-06-14 23:17 | NURSING ---
See anesthesia records for BP during csection. Magnesium IV infusing during csection.
--- NOTE | 2019-06-14 23:23 | PLAC_PTH ---
PATIENT: LEANA JANES LOC: [facility] U#:[id number] AGE/SX: / ROOM: WP006 RE06/14/[address]: Dr. Anne-Marie Gomes, MDDOB: 1990 BED: 1 DIS: 06/18/2019 SPEC #: [id number] RECD: 06/15/19 03:37 STATUS: CHUCKY MELIZA #: [id number] KARINA: 06/14/19 23:[address]: Anne-Marie Gomes DEPT: SURGICAL PATHOLOGY RECD BY: Sctot Duckworth ENTERED: 06/15/19 09:49 SP TYPE: PLACENTA OTHR DR: Dr. Wu Mckenna, DO Tissues: A - Placenta, NOS B - Fallopian tube Procedures: Surgery Specimen Level II Surgery Specimen Level V HEADER OPERATION: Primary section PRE-OP DIAGNOSIS: Labor and delivery, sterilization TISSUE SUBMITTED: A - Placenta, B - Fallopian tube MICROSCOPIC DIAGNOSIS A. Placenta: Placental disc - third trimester placenta (373 gm). Membranes - no pathologic diagnosis. Umbilical cord - three blood vessels and no pathologic diagnosis. B. Right fallopian tube, tubal ligation: A completely transected segment of fallopian tube, no pathologic diagnosis. SJ:marissa 06/17/19 MICROSCOPIC DESCRIPTION Slides are reviewed. GROSS DESCRIPTION A. SPECIMEN: PLACENTA / CLINICAL INFORMATION: A. Weight: 2.72 kg B. Gestational Age: 37 weeks C. Sex: Female PLACENTAL WEIGHT (POST FIXATION): 373 gm PLACENTAL DIMENSIONS: 15 x 14 x 3 cm PLACENTAL SHAPE: Usual ovoid. The body of the placenta is partly disrupted, however, appears to be complete. PLACENTAL WEIGHT FOR GESTATIONAL AGE: Within 10-99th percentile. MEMBRANES - Present A. Insertion: Marginal B. Site of rupture from edge: 9 cm from edge of placental disc C. Color of membrane: Kumar-neumann D. Abnormalities: None UMBILICAL CORD - Present A. Color: Kumar-neumann B. Insertion: Marginal C. Length: 28 cm D. Diameter: 1 cm E. Number of vessels: Three F. Abnormalities: None PLACENTAL DISC - Present A. Color of surface: Kumar-neumann B. surface abnormalities: None C. Maternal cotyledons: Intact with minimal tears D. Attached retro placental clot: No clot E. Cut surface: Dark red and spongy F. Lesions: None G. Separate clot: Absent SECTIONS SUBMITTED: 1. Membrane roll 2. Cord, maternal end 3. Cord, end 4. Placental disc, and maternal surfaces 5. Placental disc, and maternal surfaces 6. Placental disc, and maternal surfaces CHRISTIANO:marissa 06/16/19 B - Received in fixative is one container labeled with the patient's name and designated right fallopian tube. The specimen consists of a tubular piece of kumar soft tissue measuring 1 cm in length and 0.7 cm in diameter. The entire specimen is submitted in one cassette. It will be sectioned at the time of embedding. / Jae 06/15/19 TC:4 CPT: 87840, [id number]
[2019-06-15] VITALS (33 sets, daily range): BP systolic 121–162; BP diastolic 59–98; PULSE 82–99; RESP 14–20; TEMP 35.9–37; O2SAT 96–99
[2019-06-15] MEDS: Ketorolac 30 MG/ML Syringe IV ×5 (00:01→23:13)
--- NOTE | 2019-06-15 00:02 | PCM.OPRPT ---
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 She was then placed in the supine position. Epidural anesthesia was found to be adequate. She was prepped and draped in the normal sterile fashion. Anesthesia was found to be adequate. At this time a Pfannenstiel skin incision was made with a knife was carried down to the underlying layer of the fascia. The fascial incision was then extended laterally using curved Aquino scissor. Attention was then turned to the superior aspect of the fascial edge was grasped with 2 straight [place] clamps tented up and the rectus muscle dissected off sharply using curved Aquino scissor. Attention was then turned to the inferior aspect where again [place] clamps were placed in the rectus muscles were tented up and the fascia was dissected off sharply using the curved Aquino scissor. Rectus muscles were then in the midline bluntly and peritoneum was entered bluntly. Gentle opposing traction was placed. At this time the vesicouterine peritoneum was identified. Scalpel was used to make a uterine incision in a low transverse fashion. The uterus was then entered bluntly gentle opposing traction was placed to extend this incision. Membranes were ruptured clear. 's head was brought to the uterine incision was delivered atraumatically- noted to be in OP position. Cord was clamped and cut was handed to the waiting nursery team. The Placenta was removed from the uterus. The uterus was then removed from the abdominal cavity. The uterus was cleared of all clots and debris using a lap. Right Lower segment extension noted. Extension was repaired using #1 vicryl. At this time the uterine incision was reapproximated using #1 Vicryl in a running locked fashion. followed by a second imbricating layer. Hemostasis was appreciated. Posterior cul-de-sac was then cleared of all clots and debris. Uterus was placed back in the abdominal cavity. Gutters were cleared of all clots and debris. Uterine incision was reevaluated and noted to be of good hemostasis. Left tube previously removed, Right tube was grabbed with a [place]. Knuckle was created. 0 plain gut suture was placed in the second secured suture was placed. At this time then the tube was ligated using the Metzenbaum scissors and the ends of the tubes were coagulated using the Bovie. Excellent hemostasis was appreciated. Cecile was placed over the uterine incision as well as the site of the extension. Good hemostasis was again appreciated. At this time the peritoneum was grasped with Kellys reapproximated using #2 Vicryl suture in a running fashion. Bleeding noted on the left side of the rectus muscle. This area was sutured with a [id number] #2 Vicryl suture. Good hemostasis appreciated. Cecile was placed. Fascia was then reapproximated using #1 Vicryl in a running fashion. Subcu layer was reapproximated with #2 0 plain gut suture in an interrupted fashion. Subcu layer was closed using 4-0 Monocrylin a subcu fashion. Dry sterile dressing was applied. Instrument lap needle count correct ?2. Anticipated normal postoperative course. Amniotic Membrane Rupture Type: Artificial Amniotic Fluid Description: Clear Placenta Disposition: Routine to Lab Specimen(s) sent to pathology: placenta, Right fallopian tube Drain: [place] to straight drain Cord Entanglement: None Cord Vessel Description: 3 Vessels Esitmated Blood Loss (ml): 800 Gender: Female (1 minute): 7 (5 minute): 8 Delayed cord clamping: No Antibiotic Given: Ancef 2 grams IV x1, Zithromax 500 mg/5 mL X1 Pt instructed on risks of surgery: Bleeding, Anesthesia Risks, Infection, Permanency, Failure Rate of 1 to 2%, Injury to surrounding structure(s) including bowel and bladder Complications: None - Admit VTE Documentation VTE Present on Admission: Yes VTE Mechan Device Prophylaxis: SCD's VTE Pharm Prophylaxis ordered?: Yes
[2019-06-15] MEDS: Lactated Ringers 1,000 ML 50 ML IV ×2 (00:20→06:36)
--- NOTE | 2019-06-15 00:30 | NURSING ---
See post narcotic intervention for VS.
[2019-06-15] MEDS: Oxytocin 30 units/NS 500 ml 30 UNITS/500 ML IV.SOLN 167 UNITS IV (00:44)
[2019-06-15 03:38] LABS: Pathology Specimen OB SEE PATHOLOGY REPORT
[2019-06-15] MEDS: Labetalol 200 MG Tablet 300 MG PO ×3 (06:04→21:59)
--- NOTE | 2019-06-15 06:58 | NURSING ---
Epidural catheter removed, blue tip intact. Abdominal binder placed on pt for ambulation.
--- NOTE | 2019-06-15 07:53 | PN.OBGYN_ITS ---
Patient Problems: Active and Suspected Problems Pre-eclampsia superimposed on chronic hypertension, antepartum (Acute) Obesity affecting (Acute) Anxiety (Acute) Subjective: Patient seen at bedside, doing well. Patient reports resolution of headache. She denies any chest pain, shortness of breath, dizziness. Denies passing flatus. Eldridge catheter in place at this time old dark blood clots noted in the Eldridge catheter. Urine output has been adequate. - Physical Exam Vitals/I&O's: Vital Signs Temp Pulse Resp BP Pulse Ox 97.1 F L 99 18 131/72 H 99 06/15/19 06:38 06/15/19 06:38 06/15/19 06:38 06/15/19 06:38 06/15/19 06:38 Oxygen Delivery Method Room Air Weight: 93.8 kg Body Mass Index (BMI) 35.4 Intake and Output for Last 24 Hours 06/13/19 06/14/19 06/15/19 23:59 23:59 23:59 Intake Total 3912.24 / 3912.24 1648.34 / 1648.34 Output Total 3220 / 3220 720 / 720 Balance 692.24 / 692.24 928.34 / 928.34 General: Alert, Oriented x3 Abdomen: Bowel Sounds Present, Soft, Non-Distended, - - Fundus firm. Incision dressing dry and intact. Extremities: No Calf Tenderness Neurological: Cranial nerves II-XII grossly intact Laboratory Results 06/14/19 07:50: WBC 6.9, RBC 4.51, Hgb 13.8, Hct 40.8, MCV 90.5, MCH 30.6, MCHC 33.8, RDW Std Deviation 40.2, RDW Coeff of Leeanne 12.3, Plt Count 284, MPV 9.8, Immature Gran % (Auto) 0.700, Neut % (Auto) 73.6 H, Lymph % (Auto) 18.7 L, [place] % (Auto) 5.5, Eos % (Auto) 0.9, Baso % (Auto) 0.6, Absolute Neuts (auto) 5.1, Absolute Lymphs (auto) 1.28, Nucleated RBC % 0 06/14/19 07:50: Blood Type A POSITIVE, Antibody Screen NEGATIVE 06/14/19 09:25: U Random Total Protein 33.0 H, Urine Creatinine 52.80, Protein/Creatinin Ratio 625 H 06/14/19 09:28: WBC 7.3, RBC 4.56, Hgb 14.1, Hct 41.6, MCV 91.2, MCH 30.9, MCHC 33.9, RDW Std Deviation 40.4, RDW Coeff of Leeanne 12.2, Plt Count 302, MPV 9.6 06/14/19 09:28: PT 12.3, INR 0.9, APTT 25.5 06/14/19 09:28: Creatinine 0.54 L, Estim Creat Clear Calc 130.35, Est GFR (MDRD) Af Amer 171, Est GFR (MDRD) Non-Af 141, Uric Acid 4.7, AST 29, ALT 37 Current Medications Acetaminophen (Tylenol) 1,000 mg PO Q8H PRN PRN Reason: Pain Score 1-3/10 Bisacodyl (Dulcolax) 10 mg RECTAL UD PRN PRN Reason: If no BM Enoxaparin Sodium (Lovenox) 40 mg SC DAILY [facility] Hydrocortisone (Hytone) 1 applic TOPICAL TID PRN PRN; Protocol PRN Reason: Discomfort Magnesium Sulfate 20 gm/ (Sodium Chloride) 500 mls @ 50 mls/hr IV .Q10H [facility]; Protocol Stop: 06/15/19 23:23 Last Admin: 06/15/19 06:34 Dose: 2 gm/hr, 50 mls/hr Documented by: Lactated Ringer's () 1,000 mls @ 50 mls/hr IV .Q20H [facility] Last Admin: 06/15/19 06:36 Dose: 50 mls/hr Documented by: Naloxone HCl 4 mg/ Dextrose 504 mls @ 0 mls/hr IV .Q0M PRN; Protocol PRN Reason: Respiratory depression Naloxone HCl 4 mg/ Dextrose 504 mls @ 0 mls/hr IV .Q0M PRN; Protocol PRN Reason: To maintain Resp. rate >10 Ibuprofen (Motrin) 600 mg PO Q6H PRN PRN PRN Reason: Pain Score 1-3/10 Ketorolac Tromethamine (Toradol) 30 mg IV Q6 [facility] Stop: 06/17/19 00:01 Last Admin: 06/15/19 06:04 Dose: 30 mg Documented by: Labetalol HCl (Trandate) 300 mg PO TID [facility] Last Admin: 06/15/19 06:04 Dose: 300 mg Documented by: Methylergonovine Maleate (Methergine) 0.2 mg IM X1 PRN PRN Reason: Uterine Atony Naloxone HCl (Narcan) 0.02 mg IV Q1M PRN PRN Reason: RR <10 and pt unresponsive Ondansetron HCl (Zofran) 4 mg IV Q4H PRN PRN PRN Reason: Nausea Oxycodone HCl (Oxyir) 5 - 10 mg PO Q4H PRN PRN PRN Reason: Pain Score 4-10/10 Prochlorperazine Edisylate (Compazine Iv) 10 mg IV Q6H PRN PRN PRN Reason: NAUSEA Senna/Docusate Sodium (Senokot-S, Kathy-Colace) 0 tablet PO DAILY PRN PRN Reason: Constipation Simethicone (Mylicon) 80 mg PO PCHS PRN PRN Reason: Indigestion/stomach pain Sodium Chloride () 5 - 15 ml IV UD PRN PRN Reason: SALINE FLUSH Medical Necessity - Tobacco Use Smoking Status: Never smoker Assessment/Plan All Active Problems Pre-eclampsia superimposed on chronic hypertension, antepartum (Acute) Obesity affecting (Acute) Anxiety (Acute) Postop day #1, chronic hypertension with superimposed preeclampsia-severe features strict I&O Monitor VS - Continue PO labetalol 300 TID Maintain eldridge and flush to see if can dislodge old clots Magnesium to continue- Total IVF 150cc/hr cbc stable- Hemoconcentration pain mgmt
--- NOTE | 2019-06-15 08:15 | NURSING ---
RN clamped and flushed indwelling urinary catheter with 200mL at [address] Lindsey. RN emptied catheter for 100mL before opening the clamp at 0810 and allowing for drainage. RN used syringe in port to create turbulence and dislodged a quarter sized clot. Urine draining dark red color at 0815. RN to report to Dr. Lindsey how pt tolerated and how the procedure went.
[2019-06-15] MEDS: Enoxaparin 40 MG/0.4 ML Syringe SC (10:45)
[2019-06-15] MEDS: Senna/Docusate Sodium 1 Tablet PO (10:46)
--- NOTE | 2019-06-15 10:59 | NURSING ---
RN received call from Dr. Lindsey at 0900 to discuss pt condition. RN reported dislodged clot from indwelling urinary catheter, with dark red, continuous drainage since 08. RN to leave urinary catheter in place until 24 hours after delivery and continue to strictly monitor urinary output color and amount. RN also verified order to give lovenox at [address] Lindsey confirming administration was appropriate at this time.
[2019-06-15] MEDS: Acetaminophen 500 MG Tablet 1000 MG PO (15:31)
--- NOTE | 2019-06-15 17:35 | NURSING ---
RN drained pt indwelling urinary catheter at 1625 for 30mL. RN clamped and started to flush indwelling urinary catheter at this time with 200mL normal saline to ensure no further clots were inhibiting urinary catheter drainage. RN noted drainage to be clear yellow at 1635 when indwelling urinary catheter unclamped. This RN gave report on pt to Sadie Alonso at 1650 and reminded RN to subtract 200mL from hourly urinary output due at 1730.
--- NOTE | 2019-06-15 17:52 | PCM.PN.OB ---
Patient Problems: Active and Suspected Problems Pre-eclampsia superimposed on chronic hypertension, antepartum (Acute) Obesity affecting (Acute) Anxiety (Acute) Subjective: pain well controlled. Feeling groggy on magnesium. Denies severe RHODES. No N/V. thirsty. - Physical Exam Vitals/I&O's: Vital Signs Temp Pulse Resp BP Pulse Ox 97.9 F 90 16 134/88 H 98 06/15/19 16:45 06/15/19 16:45 06/15/19 16:45 06/15/19 17:00 06/15/19 16:45 Oxygen Delivery Method Room Air Weight: 93.8 kg Body Mass Index (BMI) 35.4 Intake and Output for Last 24 Hours 06/13/19 06/14/19 06/15/19 23:59 23:59 23:59 Intake Total 3912.24 / 3912.24 2547.51 / 2547.51 Output Total 3220 / 3220 2014 Balance 692.24 / 692.24 532.51 / 532.51 General: Alert, Cooperative, No apparent distress Abdomen: Soft, Distended - mildly Current Medications Acetaminophen (Tylenol) 1,000 mg PO Q8H PRN PRN Reason: Pain Score 1-3/10 Last Admin: 06/15/19 15:31 Dose: 1,000 mg Documented by: Bisacodyl (Dulcolax) 10 mg RECTAL UD PRN PRN Reason: If no BM Enoxaparin Sodium (Lovenox) 40 mg SC DAILY [facility] Last Admin: 06/15/19 10:45 Dose: 40 mg Documented by: Hydrocortisone (Hytone) 1 applic TOPICAL TID PRN PRN; Protocol PRN Reason: Discomfort Magnesium Sulfate 20 gm/ (Sodium Chloride) 500 mls @ 50 mls/hr IV .Q10H [facility]; Protocol Stop: 06/15/19 23:23 Last Infusion: 06/15/19 16:45 Dose: 2 gm/hr, 50 mls/hr Documented by: Lactated Ringer's () 1,000 mls @ 50 mls/hr IV .Q20H [facility] Last Admin: 06/15/19 06:36 Dose: 50 mls/hr Documented by: Naloxone HCl 4 mg/ Dextrose 504 mls @ 0 mls/hr IV .Q0M PRN; Protocol PRN Reason: Respiratory depression Naloxone HCl 4 mg/ Dextrose 504 mls @ 0 mls/hr IV .Q0M PRN; Protocol PRN Reason: To maintain Resp. rate >10 Ibuprofen (Motrin) 600 mg PO Q6H PRN PRN PRN Reason: Pain Score 1-3/10 Ketorolac Tromethamine (Toradol) 30 mg IV Q6 [facility] Stop: 06/17/19 00:01 Last Admin: 06/15/19 11:49 Dose: 30 mg Documented by: Labetalol HCl (Trandate) 300 mg PO TID [facility] Last Admin: 06/15/19 13:46 Dose: 300 mg Documented by: Methylergonovine Maleate (Methergine) 0.2 mg IM X1 PRN PRN Reason: Uterine Atony Naloxone HCl (Narcan) 0.02 mg IV Q1M PRN PRN Reason: RR <10 and pt unresponsive Ondansetron HCl (Zofran) 4 mg IV Q4H PRN PRN PRN Reason: Nausea Oxycodone HCl (Oxyir) 5 - 10 mg PO Q4H PRN PRN PRN Reason: Pain Score 4-10/10 Prochlorperazine Edisylate (Compazine Iv) 10 mg IV Q6H PRN PRN PRN Reason: NAUSEA Senna/Docusate Sodium (Senokot-S, Kathy-Colace) 0 tablet PO DAILY PRN PRN Reason: Constipation Last Admin: 06/15/19 10:46 Dose: 1 tablet Documented by: Simethicone (Mylicon) 80 mg PO PCHS PRN PRN Reason: Indigestion/stomach pain Sodium Chloride () 5 - 15 ml IV UD PRN PRN Reason: SALINE FLUSH Medical Necessity - Tobacco Use Smoking Status: Never smoker Assessment/Plan All Active Problems Pre-eclampsia superimposed on chronic hypertension, antepartum (Acute) Obesity affecting (Acute) Anxiety (Acute) POD#1 s/p primary c/s BP more stable, back on labetalol ok to d/c magnesium at 11 pm d/c fluid restriction. Urine is now pink/rust colored but clear, no clot. 150 mg this past hour. is doing well
[2019-06-15 18:27] LABS: Hematocrit 33.2 % (37-47); Mean Corp Hgb Conc 33.1 g/dL (32-36); Mean Corpuscular Hgb 30.9 pg (27.0-32.0); Mean Corpuscular Volume 93.3 fL (81-99); Mean Platelet Vol. 9.6 fl (6.2-12.0); Platelet Count 279 K/mm3 (150-450); RBC Distribution Width SD 43.9 fl (35.1-43.9); Red Blood Count 3.56 M/mm3 (4.2-5.4); White Blood Count 13.9 K/mm3 (4.4-11.0)
[2019-06-15 18:33] LABS: ALB/GLOB Ratio 0.8 RATIO (0.9-2.4); AST(SGOT) 31 U/L (15-37); Alanine Aminotransfer ALT/SGPT 34 U/L (13-56); Albumin, Serum 2.6 g/dL (3.2-5.0); Alkaline Phosphatase 70 U/L (45-117); Anion Gap 7 (5-15); BUN 18 mg/dL (7-18); BUN/Creat Ratio 24.5 RATIO (10-20); Calcium,Total 6.8 mg/dL (8.5-10.1); Chloride 107 mmol/L (98-107); Creatinine, Serum 0.73 mg/dL (0.55-1.02); EST Glomerular Filtration Rate 98 mL/min (>60); Est Glom Filt Rate - Afr Amer 119 mL/min (>60); Estimated Creatinine Clearance 96.42 ml/min; Globulin 3.1 g/dL (2.2-4.2); Glucose 105 mg/dL (74-106); Potassium 3.9 mmol/L (3.5-5.1); Protein, Total 5.7 g/dL (6.4-8.2); Sodium Level 136 mmol/L (136-145)
[2019-06-15] MEDS: 0.9% Saline Lock 10 ML Syringe IV (23:12)
[2019-06-16 03:54] VITALS: BP 141/89; PULSE 81; RESP 18; TEMP 36.4
[2019-06-16 04:32] LABS: Hematocrit 31.4 % (37-47); Hemoglobin 10.6 g/dL (12.0-15.0); Mean Corp Hgb Conc 33.8 g/dL (32-36); Mean Corpuscular Hgb 31.5 pg (27.0-32.0); Mean Corpuscular Volume 93.2 fL (81-99); Mean Platelet Vol. 9.1 fl (6.2-12.0); Platelet Count 262 K/mm3 (150-450); RBC Distribution Width CV 13.1 % (11.6-14.6); RBC Distribution Width SD 44.5 fl (35.1-43.9); Red Blood Count 3.37 M/mm3 (4.2-5.4); White Blood Count 11.2 K/mm3 (4.4-11.0)
[2019-06-16] MEDS: Ketorolac 30 MG/ML Syringe IV ×3 (06:27→18:28)
[2019-06-16 06:28] VITALS: BP 133/85; PULSE 78
[2019-06-16] MEDS: Labetalol 200 MG Tablet 300 MG PO ×3 (06:28→22:01)
[2019-06-16] MEDS: 0.9% Saline Lock 10 ML Syringe IV ×3 (06:28→18:28)
--- NOTE | 2019-06-16 07:55 | PCM.PN.OB ---
Patient Problems: Active and Suspected Problems Pre-eclampsia superimposed on chronic hypertension, antepartum (Acute) Obesity affecting (Acute) Anxiety (Acute) Subjective: Patient seen at bedside, doing well. Patient reports good pain control. Passing flatus. Voiding without difficulty patient reports that her urine is clear at this time. She denies any chest pain, shortness of breath or dizziness. Patient is bottle and breast-feeding. She denies any headaches or visual changes - Physical Exam Vitals/I&O's: Vital Signs Temp Pulse Resp BP Pulse Ox 97.5 F L 78 18 133/85 H 96 06/16/19 03:54 06/16/19 06:28 06/16/19 03:54 06/16/19 06:28 06/15/19 23:06 Oxygen Delivery Method Room Air Weight: 93.8 kg Body Mass Index (BMI) 35.4 Intake and Output for Last 24 Hours 06/14/19 06/15/19 06/16/19 23:59 23:59 23:59 Intake Total 3912.24 / 3912.24 4090.02 / 4090.02 Output Total 3220 / 3220 3170 / 3170 700 / 700 Balance 692.24 / 692.24 920.02 / 920.02 -700 / -700 General: Alert, Oriented x3 Abdomen: Soft, Non-Distended, - - fundus firm, Incision dressing dry and intact Extremities: No Calf Tenderness Neurological: Cranial nerves II-XII grossly intact Laboratory Results 06/15/19 17:30: WBC 13.9 H, RBC 3.56 L, Hgb 11.0 L, Hct 33.2 L, MCV 93.3, MCH 30.9, MCHC 33.1, RDW Std Deviation 43.9, RDW Coeff of Leeanne 13.0, Plt Count 279, MPV 9.6 06/15/19 17:30: Sodium 136, Potassium 3.9, Chloride 107, Carbon Dioxide 22.0, Anion Gap 7, BUN 18, Creatinine 0.73, Estim Creat Clear Calc 96.42, Est GFR (MDRD) Af Amer 119, Est GFR (MDRD) Non-Af 98, BUN/Creatinine Ratio 24.5 H, Glucose 105, Calcium 6.8 L, Total Bilirubin 0.30, AST 31, ALT 34, Alkaline Phosphatase 70, Total Protein 5.7 L, Albumin 2.6 L, Globulin 3.1, Albumin/Globulin Ratio 0.8 L 06/16/19 04:02: WBC 11.2 H, RBC 3.37 L, Hgb 10.6 L, Hct 31.4 L, MCV 93.2, MCH 31.5, MCHC 33.8, RDW Std Deviation 44.5 H, RDW Coeff of Leeanne 13.1, Plt Count 262, MPV 9.1 Current Medications Acetaminophen (Tylenol) 1,000 mg PO Q8H PRN PRN Reason: Pain Score 1-3/10 Last Admin: 06/15/19 15:31 Dose: 1,000 mg Documented by: Bisacodyl (Dulcolax) 10 mg RECTAL UD PRN PRN Reason: If no BM Enoxaparin Sodium (Lovenox) 40 mg SC DAILY [facility] Last Admin: 06/15/19 10:45 Dose: 40 mg Documented by: Hydrocortisone (Hytone) 1 applic TOPICAL TID PRN PRN; Protocol PRN Reason: Discomfort Naloxone HCl 4 mg/ Dextrose 504 mls @ 0 mls/hr IV .Q0M PRN; Protocol PRN Reason: Respiratory depression Naloxone HCl 4 mg/ Dextrose 504 mls @ 0 mls/hr IV .Q0M PRN; Protocol PRN Reason: To maintain Resp. rate >10 Ibuprofen (Motrin) 600 mg PO Q6H PRN PRN PRN Reason: Pain Score 1-3/10 Ketorolac Tromethamine (Toradol) 30 mg IV Q6 [facility] Stop: 06/17/19 00:01 Last Admin: 06/16/19 06:27 Dose: 30 mg Documented by: Labetalol HCl (Trandate) 300 mg PO TID [facility] Last Admin: 06/16/19 06:28 Dose: 300 mg Documented by: Methylergonovine Maleate (Methergine) 0.2 mg IM X1 PRN PRN Reason: Uterine Atony Naloxone HCl (Narcan) 0.02 mg IV Q1M PRN PRN Reason: RR <10 and pt unresponsive Ondansetron HCl (Zofran) 4 mg IV Q4H PRN PRN PRN Reason: Nausea Oxycodone HCl (Oxyir) 5 - 10 mg PO Q4H PRN PRN PRN Reason: Pain Score 4-10/10 Prochlorperazine Edisylate (Compazine Iv) 10 mg IV Q6H PRN PRN PRN Reason: NAUSEA Senna/Docusate Sodium (Senokot-S, Kathy-Colace) 0 tablet PO DAILY PRN PRN Reason: Constipation Last Admin: 06/15/19 10:46 Dose: 1 tablet Documented by: Simethicone (Mylicon) 80 mg PO PCHS PRN PRN Reason: Indigestion/stomach pain Sodium Chloride () 5 - 15 ml IV UD PRN PRN Reason: SALINE FLUSH Last Admin: 06/16/19 06:28 Dose: 10 ml Documented by: Medical Necessity - Tobacco Use Smoking Status: Never smoker Assessment/Plan All Active Problems Pre-eclampsia superimposed on chronic hypertension, antepartum (Acute) Obesity affecting (Acute) Anxiety (Acute) POD#2, doing well 1) continue to monitor BP 2) repeat CMP today x 1 3) Possible dc home tomorrow if continues to be stable 4) labetalol 300 TID
[2019-06-16 08:00] VITALS: BP 137/80; PULSE 83; RESP 16; TEMP 36.6
[2019-06-16] MEDS: Enoxaparin 40 MG/0.4 ML Syringe SC (10:28)
[2019-06-16 10:29] LABS: ALB/GLOB Ratio 0.9 RATIO (0.9-2.4); AST(SGOT) 25 U/L (15-37); Alanine Aminotransfer ALT/SGPT 28 U/L (13-56); Albumin, Serum 2.6 g/dL (3.2-5.0); Alkaline Phosphatase 60 U/L (45-117); Anion Gap 6 (5-15); BUN 12 mg/dL (7-18); BUN/Creat Ratio 18.4 RATIO (10-20); Calcium,Total 6.8 mg/dL (8.5-10.1); Chloride 108 mmol/L (98-107); Creatinine, Serum 0.65 mg/dL (0.55-1.02); EST Glomerular Filtration Rate 112 mL/min (>60); Est Glom Filt Rate - Afr Amer 136 mL/min (>60); Estimated Creatinine Clearance 108.29 ml/min; Globulin 2.9 g/dL (2.2-4.2); Glucose 103 mg/dL (74-106); Potassium 3.8 mmol/L (3.5-5.1); Protein, Total 5.5 g/dL (6.4-8.2); Sodium Level 137 mmol/L (136-145)
[2019-06-16 14:00] VITALS: BP 141/85; PULSE 97; RESP 18; TEMP 36.1
[2019-06-16 20:00] VITALS: BP 150/90; PULSE 94; RESP 18; TEMP 36.7; O2SAT 98
[2019-06-16 23:54] VITALS: BP 162/81; PULSE 89; RESP 18; TEMP 36.6
[2019-06-17] VITALS (18 sets, daily range): BP systolic 145–179; BP diastolic 77–97; PULSE 82–110; RESP 16–18; TEMP 36.6–37.3; O2SAT 98
[2019-06-17] MEDS: NIFEdipine 30 MG Tablet PO (00:35)
[2019-06-17] MEDS: Ibuprofen 600 MG Tablet PO ×3 (03:46→20:25)
[2019-06-17] MEDS: Labetalol 200 MG Tablet 300 MG PO ×3 (06:01→21:46)
[2019-06-17] MEDS: 0.9% Saline Lock 10 ML Syringe IV ×2 (06:50→07:14)
--- NOTE | 2019-06-17 07:55 | PCM.PN.OB ---
Patient Problems: Active and Suspected Problems Pre-eclampsia superimposed on chronic hypertension, antepartum (Acute) Obesity affecting (Acute) Anxiety (Acute) Subjective: Patient seen at bedside, doing well. Patient denies any headaches, visual changes, chest pain, shortness of breath. Patient reports good pain control. Mild lochia. Passing flatus. - Physical Exam Vitals/I&O's: Vital Signs Temp Pulse Resp BP Pulse Ox 97.8 F 90 18 156/92 H 98 06/16/19 23:54 06/17/19 07:25 06/17/19 07:25 06/17/19 07:25 06/17/19 00:05 Oxygen Delivery Method Room Air Weight: 93.8 kg Body Mass Index (BMI) 35.4 Intake and Output for Last 24 Hours 06/15/19 06/16/19 06/17/19 23:59 23:59 23:59 Intake Total 4090.02 / 4090.02 Output Total 3170 / 3170 700 / 700 Balance 920.02 / 920.02 -700 / -700 General: Alert, Oriented x3 Abdomen: Soft, - - fundus firm, dressing dry and intact Extremities: No Calf Tenderness Neurological: Cranial nerves II-XII grossly intact Laboratory Results 06/16/19 10:00: Sodium 137, Potassium 3.8, Chloride 108 H, Carbon Dioxide 23.0, Anion Gap 6, BUN 12, Creatinine 0.65, Estim Creat Clear Calc 108.29, Est GFR (MDRD) Af Amer 136, Est GFR (MDRD) Non-Af 112, BUN/Creatinine Ratio 18.4, Glucose 103, Calcium 6.8 L, Total Bilirubin 0.40, AST 25, ALT 28, Alkaline Phosphatase 60, Total Protein 5.5 L, Albumin 2.6 L, Globulin 2.9, Albumin/Globulin Ratio 0.9 Current Medications Acetaminophen (Tylenol) 1,000 mg PO Q8H PRN PRN Reason: Pain Score 1-3/10 Last Admin: 06/15/19 15:31 Dose: 1,000 mg Documented by: Bisacodyl (Dulcolax) 10 mg RECTAL UD PRN PRN Reason: If no BM Calcium Gluconate () 1 gm IV X1 PRN PRN Reason: MAGNESIUM TOXICITY Enoxaparin Sodium (Lovenox) 40 mg SC DAILY [facility] Last Admin: 06/16/19 10:28 Dose: 40 mg Documented by: Hydralazine HCl (Apresoline Iv) 10 mg IV X1 PRN; Protocol PRN Reason: BP>160/110mmHg Hydrocortisone (Hytone) 1 applic TOPICAL TID PRN PRN; Protocol PRN Reason: Discomfort Naloxone HCl 4 mg/ Dextrose 504 mls @ 0 mls/hr IV .Q0M PRN; Protocol PRN Reason: Respiratory depression Naloxone HCl 4 mg/ Dextrose 504 mls @ 0 mls/hr IV .Q0M PRN; Protocol PRN Reason: To maintain Resp. rate >10 Ibuprofen (Motrin) 600 mg PO Q6H PRN PRN PRN Reason: Pain Score 1-3/10 Last Admin: 06/17/19 03:46 Dose: 600 mg Documented by: Labetalol HCl (Trandate) 300 mg PO TID [facility] Last Admin: 06/17/19 06:01 Dose: 300 mg Documented by: Labetalol HCl (Trandate) 20 - 80 mg IV Q10M PRN PRN; Protocol PRN Reason: BP>160/110mmHg Last Admin: 06/17/19 07:13 Dose: 20 mg Documented by: Methylergonovine Maleate (Methergine) 0.2 mg IM X1 PRN PRN Reason: Uterine Atony Midazolam HCl (Versed) 2 mg IV Q5M PRN PRN Reason: SEIZURE Naloxone HCl (Narcan) 0.02 mg IV Q1M PRN PRN Reason: RR <10 and pt unresponsive Nifedipine (Procardia Xl) 60 mg PO DAILY [facility] Ondansetron HCl (Zofran) 4 mg IV Q4H PRN PRN PRN Reason: Nausea Oxycodone HCl (Oxyir) 5 - 10 mg PO Q4H PRN PRN PRN Reason: Pain Score 4-10/10 Prochlorperazine Edisylate (Compazine Iv) 10 mg IV Q6H PRN PRN PRN Reason: NAUSEA Senna/Docusate Sodium (Senokot-S, Kathy-Colace) 0 tablet PO DAILY PRN PRN Reason: Constipation Last Admin: 06/15/19 10:46 Dose: 1 tablet Documented by: Simethicone (Mylicon) 80 mg PO PCHS PRN PRN Reason: Indigestion/stomach pain Sodium Chloride () 5 - 15 ml IV UD PRN PRN Reason: SALINE FLUSH Last Admin: 06/17/19 07:14 Dose: 10 ml Documented by: Medical Necessity - Tobacco Use Smoking Status: Never smoker Assessment/Plan All Active Problems Pre-eclampsia superimposed on chronic hypertension, antepartum (Acute) Obesity affecting (Acute) Anxiety (Acute) POD#3, CHTN with superimposed PRE Eclampsia- elevated BP range at this time 1) BP elevated- was given Procardia 30 xl overnight along with 20mg IV labetalol and routine scheduled 300mg PO labetalol TID. will change to Procardia 60xl at 1230 and give scheduled PO labetalol. Will discuss with her PCP as previous BP meds prior to included Lisinopril 2) will continue to monitor today- if BP stabalizes consider dc home tomorrow 3) Ambulation 4) pain mgmt
[2019-06-17 08:01] LABS: Hematocrit 32.2 % (37-47); Hemoglobin 10.7 g/dL (12.0-15.0); Mean Corp Hgb Conc 33.2 g/dL (32-36); Mean Corpuscular Hgb 31.5 pg (27.0-32.0); Mean Corpuscular Volume 94.7 fL (81-99); Mean Platelet Vol. 9.5 fl (6.2-12.0); Platelet Count 266 K/mm3 (150-450); RBC Distribution Width CV 12.8 % (11.6-14.6); RBC Distribution Width SD 44.5 fl (35.1-43.9); White Blood Count 8.7 K/mm3 (4.4-11.0)
[2019-06-17 08:36] LABS: ALB/GLOB Ratio 0.9 RATIO (0.9-2.4); AST(SGOT) 33 U/L (15-37); Alanine Aminotransfer ALT/SGPT 29 U/L (13-56); Albumin, Serum 2.7 g/dL (3.2-5.0); Alkaline Phosphatase 60 U/L (45-117); Anion Gap 5 (5-15); BUN 9 mg/dL (7-18); BUN/Creat Ratio 15.3 RATIO (10-20); Calcium,Total 8.1 mg/dL (8.5-10.1); Chloride 111 mmol/L (98-107); Creatinine, Serum 0.59 mg/dL (0.55-1.02); EST Glomerular Filtration Rate 127 mL/min (>60); Est Glom Filt Rate - Afr Amer 153 mL/min (>60); Globulin 3.1 g/dL (2.2-4.2); Glucose 76 mg/dL (74-106); Protein, Total 5.8 g/dL (6.4-8.2); Sodium Level 141 mmol/L (136-145)
[2019-06-17] MEDS: Enoxaparin 40 MG/0.4 ML Syringe SC (10:00)
[2019-06-17] MEDS: Acetaminophen 500 MG Tablet 1000 MG PO (11:57)
[2019-06-17] MEDS: NIFEdipine 60 MG Tablet PO (13:01)
[2019-06-17 13:49] LABS: Pathology Specimen OB SEE PATHOLOGY REPORT
[2019-06-18 03:53] VITALS: BP 154/90; PULSE 94; RESP 16; TEMP 36.6; O2SAT 98
[2019-06-18] MEDS: Ibuprofen 600 MG Tablet PO (04:40)
[2019-06-18] MEDS: Labetalol 200 MG Tablet 300 MG PO (05:52)
--- NOTE | 2019-06-18 07:59 | PCM.PN.OB ---
Patient Problems: Active and Suspected Problems Pre-eclampsia superimposed on chronic hypertension, antepartum (Acute) Obesity affecting (Acute) Anxiety (Acute) Subjective: Patient seen at bedside, doing well. Patient reports no headaches, visual changes, right upper quadrant or epigastric pain. Patient reports is passing flatus voiding without difficulty. - Physical Exam Vitals/I&O's: Vital Signs Temp Pulse Resp BP Pulse Ox 97.9 F 94 16 154/90 H 98 06/18/19 03:53 06/18/19 03:53 06/18/19 03:53 06/18/19 03:53 06/18/19 03:53 Oxygen Delivery Method Room Air Weight: 93.8 kg Body Mass Index (BMI) 35.4 Intake and Output for Last 24 Hours 06/16/19 06/17/19 06/18/19 23:59 23:59 23:59 Output Total 700 / 700 Balance -700 / -700 General: Alert, Oriented x3 Abdomen: Soft, Non-Distended, - - fundus firm. dressing dry and intact Extremities: No Calf Tenderness Laboratory Results 06/17/19 07:30: WBC 8.7, RBC 3.40 L, Hgb 10.7 L, Hct 32.2 L, MCV 94.7, MCH 31.5, MCHC 33.2, RDW Std Deviation 44.5 H, RDW Coeff of Leeanne 12.8, Plt Count 266, MPV 9.5 06/17/19 07:30: Sodium 141, Potassium 4.0, Chloride 111 H, Carbon Dioxide 25.0, Anion Gap 5, BUN 9, Creatinine 0.59, Estim Creat Clear Calc 119.30, Est GFR (MDRD) Af Amer 153, Est GFR (MDRD) Non-Af 127, BUN/Creatinine Ratio 15.3, Glucose 76, Calcium 8.1 L, Total Bilirubin 0.30, AST 33, ALT 29, Alkaline Phosphatase 60, Total Protein 5.8 L, Albumin 2.7 L, Globulin 3.1, Albumin/Globulin Ratio 0.9 Current Medications Acetaminophen (Tylenol) 1,000 mg PO Q8H PRN PRN Reason: Pain Score 1-3/10 Last Admin: 06/17/19 11:57 Dose: 1,000 mg Documented by: Bisacodyl (Dulcolax) 10 mg RECTAL UD PRN PRN Reason: If no BM Calcium Gluconate () 1 gm IV X1 PRN PRN Reason: MAGNESIUM TOXICITY Enoxaparin Sodium (Lovenox) 40 mg SC DAILY [facility] Last Admin: 06/17/19 10:00 Dose: 40 mg Documented by: Hydralazine HCl (Apresoline Iv) 10 mg IV X1 PRN; Protocol PRN Reason: BP>160/110mmHg Hydrocortisone (Hytone) 1 applic TOPICAL TID PRN PRN; Protocol PRN Reason: Discomfort Naloxone HCl 4 mg/ Dextrose 504 mls @ 0 mls/hr IV .Q0M PRN; Protocol PRN Reason: Respiratory depression Naloxone HCl 4 mg/ Dextrose 504 mls @ 0 mls/hr IV .Q0M PRN; Protocol PRN Reason: To maintain Resp. rate >10 Ibuprofen (Motrin) 600 mg PO Q6H PRN PRN PRN Reason: Pain Score 1-3/10 Last Admin: 06/18/19 04:40 Dose: 600 mg Documented by: Labetalol HCl (Trandate) 300 mg PO TID [facility] Last Admin: 06/18/19 05:52 Dose: 300 mg Documented by: Labetalol HCl (Trandate) 20 - 80 mg IV Q10M PRN PRN; Protocol PRN Reason: BP>160/110mmHg Last Admin: 06/17/19 07:13 Dose: 20 mg Documented by: Methylergonovine Maleate (Methergine) 0.2 mg IM X1 PRN PRN Reason: Uterine Atony Midazolam HCl (Versed) 2 mg IV Q5M PRN PRN Reason: SEIZURE Naloxone HCl (Narcan) 0.02 mg IV Q1M PRN PRN Reason: RR <10 and pt unresponsive Nifedipine (Procardia Xl) 60 mg PO DAILY [facility] Last Admin: 06/17/19 13:01 Dose: 60 mg Documented by: Ondansetron HCl (Zofran) 4 mg IV Q4H PRN PRN PRN Reason: Nausea Oxycodone HCl (Oxyir) 5 - 10 mg PO Q4H PRN PRN PRN Reason: Pain Score 4-10/10 Prochlorperazine Edisylate (Compazine Iv) 10 mg IV Q6H PRN PRN PRN Reason: NAUSEA Senna/Docusate Sodium (Senokot-S, Kathy-Colace) 0 tablet PO DAILY PRN PRN Reason: Constipation Last Admin: 06/15/19 10:46 Dose: 1 tablet Documented by: Simethicone (Mylicon) 80 mg PO PCHS PRN PRN Reason: Indigestion/stomach pain Sodium Chloride () 5 - 15 ml IV UD PRN PRN Reason: SALINE FLUSH Last Admin: 06/17/19 07:14 Dose: 10 ml Documented by: Medical Necessity - Tobacco Use Smoking Status: Never smoker Assessment/Plan All Active Problems Pre-eclampsia superimposed on chronic hypertension, antepartum (Acute) Obesity affecting (Acute) Anxiety (Acute) POD#4, CHTN w/ superimposed preE 1) dc home with Procardia 60XL, Labetalol 300TID 2) RTO friday06/21/19 for BP check 3) S/SX of pre e reviewed 4) pain mgmt
[2019-06-18 08:00] VITALS: BP 151/92; PULSE 80; RESP 16; TEMP 36.4; O2SAT 98
--- NOTE | 2019-06-18 08:07 | DCINST_ITS ---
Discharge Diet: No Restrictions Discharge Activity: Return to Normal Activity, May Not Drive - for 2 weeks, May not drive while taking narcotic pain medications., May Shower, May Take a Tub Bath - in 7 days. May resume sexual activity in: 4-6 weeks Lifting Restrictions: 20 pounds Additional Activity Instructions:: Nothing in the vagina for 4-6 weeks. You may return to work/school in 6 weeks. Call your doctor if your incision/area has: Continuous Slow Oozing, Sudden Increased Bleeding, Increased Pain/ Swelling, Increased Redness, Foul Smelling Discharge Call your doctor if you observe: Fever of 101 or Higher, Using more than one pad per hour - for 2 hours Suture Line Care: Avoid Pulling/Pushing, Avoid Pinching/Bending Cleanse incision/area with: Keep Dressing Clean & Dry Additional Instructions: If you experience any of the following, contact your healthcare provider. * Bleeding that soaks a pad every hour for 2 hours * Fever 100.4 or higher * Unrelieved incision or abdominal pain * Swelling, redness, discharge or bleeding from your incision or episiotomy site * Your incision begins to separate * Problems urinating (including inability to urinate or burning while urinating). * Visual changes * Severe headache * Flu-like symptoms * Pain or redness in one of both of your breasts * Pain, warmth, tenderness or swelling in your legs, especially the calf area * Frequent nausea and vomiting * Symptoms of depression or anxiety If you experience any of the following, call 911 or go to the nearest Emergency Room. * Chest pain * Problems breathing * Seizure activity * Partial or complete paralysis of a body part, slurred speech, weakness or drooping of the face, or a sudden inability to walk or hold your balance Allergies/Adverse Reactions: Allergies No Known Allergies Allergy (Verified 06/14/19 07:33) Medications to take at Discharge Vit No.130/Iron/Folic [ Tablet] 1 ea PO DAILY 06/14/19 Acetaminophen [Tylenol] 1,000 mg PO Q8H PRN #60 tab 06/18/19 Ibuprofen [Motrin] 600 mg PO Q6H PRN PRN #60 tab 06/18/19 Labetalol [Trandate (Beta Alin)] 300 mg PO TID #90 tab 06/18/19 NIFEdipine [Procardia Xl] 60 mg PO DAILY #30 tab 06/18/19 Oxycodone [Oxyir] 5 - 10 mg PO Q4H PRN PRN 7 Days #20 tablet 06/18/19 Senna/Docusate Sodium [Senokot-S] 1 tab PO DAILY PRN #30 tab 06/18/19 SimETHICONE [Mylicon] 80 mg PO PCHS PRN #30 tab 06/18/19 The following prescriptions were given: Ibuprofen [Motrin] 600 mg PO Q6H PRN PRN #60 tab PRN Reason: Pain Score 1-3/10 Transmission Status: Pending to [id number] SimETHICONE [Mylicon] 80 mg PO PCHS PRN #30 tab PRN Reason: Indigestion/stomach pain Transmission Status: Pending to [id number] Oxycodone [Oxyir] 5 - 10 mg PO Q4H PRN PRN 7 Days #20 tablet PRN Reason: Pain Score 4-10/10 Transmission Status: Received by [id number] NIFEdipine [Procardia Xl] 60 mg PO DAILY #30 tab Transmission Status: Pending to [id number] Senna/Docusate Sodium [Senokot-S] 1 tab PO DAILY PRN #30 tab PRN Reason: Constipation Transmission Status: Pending to [id number] Labetalol [Trandate (Beta Alin)] 300 mg PO TID #90 tab Transmission Status: Pending to [id number] Acetaminophen [Tylenol] 1,000 mg PO Q8H PRN #60 tab PRN Reason: Pain Score 1-3/10 Transmission Status: Pending to [id number] Follow-Up: Call to make an appointment with your doctor for an incision check in 1-2 weeks. You will also need a 6 week post- follow up appointment. Test results from this visit will be discussed in further detail at your follow- up appointment, if applicable. Please Follow Up With: Anne-Marie Gomes MD - Friday06/21/19 at 9am BP check. will need incision check in 1-2 weeks. Call for appointment. When: You will need a post- check in 6 weeks. Please Follow Up With: Wu Mckenna, DO When: within next month for BP medication adjustment Primary Care Physician: Wu Mckenna DO [Primary Care Provider] -
--- NOTE | 2019-06-18 08:09 | PCM.DC.BLA ---
Discharge Summary Date of Admission: 06/14/19 Date of Discharge: 06/18/19 Summary: Patient was admitted on 06/14/2023 induction of labor due to chronic hypertension with superimposed preeclampsia at 37 weeks gestation. Upon arrival patient had severe blood pressure range and was started on the hypertensive protocol. She received multiple doses of IV labetalol and IV hydralazine to try to control elevated blood pressures. Patient progressed to approximately 7 to 8 cm head was in the OP position. Fetus was having recurrent deep variable decelerations and continued severe blood pressure ranges for the patient. Decision at this time was made to proceed with a primary section due to recurrent category 2 heart rate tracing remote from delivery. Patient had a primary low transverse section without complication. Her postoperative course was complicated by continued severe range blood pressures. She did get magnesium sulfate for 24 hours post delivery. Patient was started on Procardia 60 XL p.o. daily as well as continue labetalol 300 mg 3 times daily. Blood pressures at time of discharge were 140s to 150s over 80s to 90s which is generally her normal range prior to . Patient will follow-up in the office 06/21/2019 for blood pressure check and will make an appointment with her primary care physician for further management of her blood pressure medications. Discharged home in stable condition on postoperative day #4. Patient Problems: Active and Suspected Problems Pre-eclampsia superimposed on chronic hypertension, antepartum (Acute) Obesity affecting (Acute) Anxiety (Acute) - Physical Exam Vitals/I&O's: Vital Signs Temp Pulse Resp BP Pulse Ox 97.9 F 94 16 154/90 H 98 06/18/19 03:53 06/18/19 03:53 06/18/19 03:53 06/18/19 03:53 06/18/19 03:53 Oxygen Delivery Method Room Air Weight: 93.8 kg Body Mass Index (BMI) 35.4 Intake and Output for Last 24 Hours 06/16/19 06/17/19 06/18/19 23:59 23:59 23:59 Output Total 700 / 700 Balance -700 / -700 Laboratory Results 06/17/19 07:30: Sodium 141, Potassium 4.0, Chloride 111 H, Carbon Dioxide 25.0, Anion Gap 5, BUN 9, Creatinine 0.59, Estim Creat Clear Calc 119.30, Est GFR (MDRD) Af Amer 153, Est GFR (MDRD) Non-Af 127, BUN/Creatinine Ratio 15.3, Glucose 76, Calcium 8.1 L, Total Bilirubin 0.30, AST 33, ALT 29, Alkaline Phosphatase 60, Total Protein 5.8 L, Albumin 2.7 L, Globulin 3.1, Albumin/Globulin Ratio 0.9 Current Medications Acetaminophen (Tylenol) 1,000 mg PO Q8H PRN PRN Reason: Pain Score 1-3/10 Last Admin: 06/17/19 11:57 Dose: 1,000 mg Documented by: Bisacodyl (Dulcolax) 10 mg RECTAL UD PRN PRN Reason: If no BM Calcium Gluconate () 1 gm IV X1 PRN PRN Reason: MAGNESIUM TOXICITY Enoxaparin Sodium (Lovenox) 40 mg SC DAILY [facility] Last Admin: 06/17/19 10:00 Dose: 40 mg Documented by: Hydralazine HCl (Apresoline Iv) 10 mg IV X1 PRN; Protocol PRN Reason: BP>160/110mmHg Hydrocortisone (Hytone) 1 applic TOPICAL TID PRN PRN; Protocol PRN Reason: Discomfort Naloxone HCl 4 mg/ Dextrose 504 mls @ 0 mls/hr IV .Q0M PRN; Protocol PRN Reason: Respiratory depression Naloxone HCl 4 mg/ Dextrose 504 mls @ 0 mls/hr IV .Q0M PRN; Protocol PRN Reason: To maintain Resp. rate >10 Ibuprofen (Motrin) 600 mg PO Q6H PRN PRN PRN Reason: Pain Score 1-3/10 Last Admin: 06/18/19 04:40 Dose: 600 mg Documented by: Labetalol HCl (Trandate) 300 mg PO TID [facility] Last Admin: 06/18/19 05:52 Dose: 300 mg Documented by: Labetalol HCl (Trandate) 20 - 80 mg IV Q10M PRN PRN; Protocol PRN Reason: BP>160/110mmHg Last Admin: 06/17/19 07:13 Dose: 20 mg Documented by: Methylergonovine Maleate (Methergine) 0.2 mg IM X1 PRN PRN Reason: Uterine Atony Midazolam HCl (Versed) 2 mg IV Q5M PRN PRN Reason: SEIZURE Naloxone HCl (Narcan) 0.02 mg IV Q1M PRN PRN Reason: RR <10 and pt unresponsive Nifedipine (Procardia Xl) 60 mg PO DAILY [facility] Last Admin: 06/17/19 13:01 Dose: 60 mg Documented by: Ondansetron HCl (Zofran) 4 mg IV Q4H PRN PRN PRN Reason: Nausea Oxycodone HCl (Oxyir) 5 - 10 mg PO Q4H PRN PRN PRN Reason: Pain Score 4-10/10 Prochlorperazine Edisylate (Compazine Iv) 10 mg IV Q6H PRN PRN PRN Reason: NAUSEA Senna/Docusate Sodium (Senokot-S, Kathy-Colace) 0 tablet PO DAILY PRN PRN Reason: Constipation Last Admin: 06/15/19 10:46 Dose: 1 tablet Documented by: Simethicone (Mylicon) 80 mg PO PCHS PRN PRN Reason: Indigestion/stomach pain Sodium Chloride () 5 - 15 ml IV UD PRN PRN Reason: SALINE FLUSH Last Admin: 06/17/19 07:14 Dose: 10 ml Documented by:
== END 2019-06-18 09:15 | disposition home or self-care (01) | DRG 783 ==
PROVIDERS: Advanced Practice Midwife; Obstetrics & Gynecology; Admitting Provider Obstetrics & Gynecology; PCP Student in an Organized Health Care Education/Training Program; Visit Provider Obstetrics & Gynecology
DX: O76 Abnormality in fetal heart rate and rhythm complicating labor and delivery (principal); O60.14X0 Preterm labor third trimester with preterm delivery third trimester, not applicable or unspecified; O11.4 Pre-existing hypertension with pre-eclampsia, complicating childbirth; O99.214 Obesity complicating childbirth; Z3A.37 37 weeks gestation of pregnancy; Z37.0 Single live birth; Z30.2 Encounter for sterilization
CPT/HCPCS: 59025; 59050; 80053; 82565; 82570; 84156; 84450; 84460; 84550; 85025; 85027; 85610; 85730; 86850; 86900; 86901; 88302; 88307; 99218; 99251; J7030; J7040; J7120; A4216; G0378; G0463; J2405; J3475